=== PATIENT | male | born 1935 | race Caucasian/White ===

== ENCOUNTER → 2016-06-20 | Outpatient (CLI) | payer MEDICARE, OTHER ==
--- NOTE | 2016-06-20 16:16 | CT ---
EXAM DESCRIPTION: Chest CT. CLINICAL HISTORY: Enlarging pulmonary nodules seen on prior study. COMPARISON: February 16, 2014 and December 24, 2015. TECHNIQUE: A volumetric CT without IV contrast was acquired and displayed in multiplanar reconstructions. FINDINGS: Mediastinum: Coronary artery disease noted. Visualized lymph nodes are within normal limits for CT size criteria. No acute aortic abnormality, pericardial effusion, or mediastinal mass. Upper Abdomen: Visualized segments of the abdominal organs are unremarkable. Lungs: There is once again severe emphysema. All the calcified and soft tissue nodules seen within bilateral lungs have remained stable. No new pulmonary nodules noted. Minimal scarring seen within the right middle lobe. No pleural effusion noted. Bones: No suspicious bone lesion is seen. IMPRESSION: All findings on today's study are stable when compared to December 24, 2015. One year followup to document 2 years stability and a benign etiology is suggested. Electronically signed by: Silvio Jaquez MD 06/20/2016 16:14
== END ==
LOC: CT 13:45
PROVIDERS: ATTEND Internal Medicine
DX: J44.9 Chronic obstructive pulmonary disease, unspecified (principal); J98.4 Other disorders of lung

== ENCOUNTER → 2016-07-19 | Outpatient (CLI) | payer MEDICARE, OTHER ==
--- NOTE | 2016-07-20 12:03 | MRI ---
EXAM DESCRIPTION: Brain w/oContrast CLINICAL HISTORY: TRANSIENT CEREBRAL ISCHEMIC ATTACK, UNSPECIFIED COMPARISON: None available TECHNIQUE: Non contrast MRI of the brain is performed according to our usual protocol including multiplanar multi sequence technique. FINDINGS: There is no restricted diffusion on today's study. The midline structures. Unremarkable. No flow void is noted within the left intracranial internal carotid artery compatible with occlusion. Encephalomalacia involving anterior bilateral temporal lobes. Extensive chronic microvascular ischemic change with cerebral atrophy, left greater than right. The orbits and globes are unremarkable. Paranasal sinuses and mastoid air cells are clear. The gradient sequences reveal no evidence of hemorrhage. IMPRESSION: There is complete occlusion of the left internal carotid artery. Extensive white matter disease noted bilaterally along with encephalomalacia of bilateral anterior temporal lobes, left greater than right. Encephalomalacia can be seen in setting of previous infarcts or trauma given location. Extensive chronic microvascular ischemic change and cerebral atrophy. The atrophy is most pronounced within the left cerebral hemisphere corresponding to the occluded left internal carotid artery. Electronically signed by: Silvio Jaquez MD 07/20/2016 12:02 PM [employer]PECTOR FINISHING
--- NOTE | 2016-07-20 13:01 | US ---
EXAM DESCRIPTION: Carotid Duplex CLINICAL HISTORY: STENOSIS COMPARISON: None Available. TECHNIQUE: Multiple grayscale, color, and spectral Doppler images of the bilateral carotid systems. FINDINGS: Atherosclerotic plaque noted within the proximal right common carotid artery and right carotid bulb. Atherosclerotic plaque noted within the left proximal common carotid artery and carotid bulb. There is complete occlusion of the left internal carotid artery. The right common carotid artery peak systolic velocity is 83 cm/s, left is 71. The peak systolic velocity of the right internal carotid artery is 107, the left is occluded. The right IC/CC ratio is 1.3. Antegrade flow within bilateral vertebral arteries. IMPRESSION: There is complete occlusion of the left internal carotid artery. This was noted on the MRI of the brain performed today. The right carotid system demonstrates stenosis measuring 1-49% due to atherosclerotic plaque and no abnormal peak systolic velocities. Electronically signed by: Silvio Jaquez MD 07/20/2016 1:00 PM [employer]SERVATION POLICY ANALYST
== END ==
LOC: MRI 09:52
PROVIDERS: ATTEND Family Medicine
DX: I65.23 Occlusion and stenosis of bilateral carotid arteries (principal)

== ENCOUNTER → 2016-10-19 | Outpatient (CLI) | payer MEDICARE, OTHER ==
--- NOTE | 2016-10-20 08:07 | CT ---
EXAM DESCRIPTION: Abdoment/Pelvis w/o Contrast CLINICAL HISTORY: RIGHT FLANK PAIN COMPARISON: February 23, 2016. TECHNIQUE: CT of the abdomen and pelvis was performed . Multiple axial images and multiplanar reconstructions were generated. This exam was performed according to our department minimal dose optimization program which includes automated exposure control, adjustment of mA and/or kV according to patient size and/or use of iterative reconstructed techniques. FINDINGS: Emphysema noted within the lung bases. The right kidney is not visualized on today's exam and may be surgically absent. No left renal stone noted. Urinary bladder is unremarkable. Mild prostate enlargement. Left fat-containing inguinal hernia. Cholelithiasis. The liver, left adrenal gland and spleen are unremarkable. There is a fat-containing right adrenal adenoma. The pancreas is unremarkable. Diverticulosis of the colon noted. The small bowel is unremarkable. Ectasia of the infrarenal abdominal aorta is noted. IMPRESSION: 1. Cholelithiasis. 2. The right kidney is surgically absent. 3. No left renal stone on today's study. 4. Diverticulosis of the colon noted. Electronically signed by: Silvio Jaquez MD 10/20/2016 8:07 AM CDT
== END | disposition home or self-care (01) ==
LOC: CT 08:44
PROVIDERS: ATTEND Family Medicine
DX: R10.9 Unspecified abdominal pain (principal)

== ENCOUNTER 2017-03-02 08:40 | Inpatient (IN) | payer MEDICARE, OTHER ==
[2017-03-02] MEDS ORDERED: ACETAMINOPHEN 500 MG TAB PO ONE (09:03)
[2017-03-02] MEDS ORDERED: IPRATROPIUM/ALBUTEROL 3 ML VIAL NEB ONE (09:13)
--- NOTE | 2017-03-02 09:46 | RAD ---
EXAM DESCRIPTION: Chest,1 View CLINICAL HISTORY: sob, cough, fever COMPARISON: April 09, 2015 FINDINGS: The cardiomediastinal silhouette is unremarkable. Airspace consolidation the right lung base is new from the prior exam and consistent with pneumonia. No pleural effusion. Again seen is a calcified granuloma in the left upper lung, stable. There is no pneumothorax or acute fracture. IMPRESSION: Right basilar pneumonia. Follow-up chest radiograph after treatment is recommended to document resolution. Electronically signed by: Byran Landry MD 03/02/2017 9:45 AM CDT
[2017-03-02] MEDS ORDERED: cefTRIAXone SODIUM 1 GM in SODIUM CHL 0.9% 50ML MIN-BAG+ 50 ML IVPB ONE (10:18)
[2017-03-02] MEDS ORDERED: AZITHROMYCIN IV 500 MG in SODIUM CHLORIDE 0.9% 250ML 250 ML IVPB ONE (10:18)
[2017-03-02] MEDS ORDERED: CLINDAMYCIN IV 900MG 900 MG in PREMIX BAG 1 BAG IVPB ONE (10:18)
[2017-03-02] MEDS ORDERED: cefTRIAXone SODIUM 1 GM VIAL ONE (10:22)
[2017-03-02] MEDS ORDERED: SODIUM CHL 0.9% 50ML MIN-BAG+ 50 ML IVPB ONE (10:23)
--- NOTE | 2017-03-02 10:41 | ED.PDOC ---
History of Present Illness - General Chief Complaint: Respiratory Problem Stated Complaint: SHORTNESS OF BREATH Time Seen by Provider: 03/02/17 09:13 Source: patient, family - History of Present Illness Initial Comments: PT PRESENTS TO THE ED WITH COMPLAINT OF SOB THAT BEGAN ABOUT 3AM THIS MORNING. PT REPORTS HAVING A CHOKING EPISODE YESTERDAY DUE TO GERD. PT REPORTS O2 SATURATION IN THE 80S AT HOME DESPITE USE OF O2 VIA NC. Timing/Duration: this morning, getting worse Severity: moderate Improving Factors: rest Worsening Factors: movement Associated Symptoms: cough, fever/chills, shortness of breath Allergies/Adverse Reactions: Allergies Budesonide [From Symbicort] Allergy (Verified 04/03/15 18:03) Formoterol [From Symbicort] Allergy (Verified 04/03/15 18:03) Milk Protein Extract [From Spiriva] Allergy (Verified 04/03/15 18:03) Tiotropium [From Spiriva] Allergy (Verified 04/03/15 18:03) Home Medications: Ambulatory Orders Aspirin [Baby Aspirin] 81 mg PO DAILY 10/10/12 Folic Acid 1 mg PO BEDTIME 10/10/12 Metoprolol Succinate [Toprol Xl] 50 mg PO BID 10/10/12 Nifedipine [Procardia Xl] 60 mg PO BID 10/10/12 Rosuvastatin Calcium [Crestor] 20 mg PO BEDTIME 10/10/12 Fluticasone-Salmeterol [Advair Hfa 230-21 Mcg/Act] 1 aer IN BID 04/03/15 Pantoprazole Tablet [Protonix] 40 mg PO ACBK 04/03/15 Polyethylene Glycol 3350 [Miralax] 17 gm PO DAILY 04/03/15 SITagliptin [Januvia] 50 mg PO DAILY 04/03/15 Review of Systems - Review of Systems Constitutional: States: fever. Denies: chills EENTM: Denies: nose congestion, throat pain Respiratory: States: cough, short of breath Cardiology: Denies: chest pain, palpitations Gastrointestinal/Abdominal: Denies: abdominal pain, diarrhea, nausea Musculoskeletal: Denies: joint pain, joint swelling Skin: Denies: dryness, lesions Neurological: Denies: headache, numbness Endocrine: States: no symptoms reported Hematologic/Lymphatic: States: no symptoms reported Past Medical History (General) - Patient Medical History Hx Seizures: No Hx Stroke: No Hx Asthma: No Hx of COPD: Yes Hx Cardiac Disorders: Yes Hx Congestive Heart Failure: No Hx Pacemaker: No Hx Hypertension: Yes Hx Diabetes: Yes - medication controled Hx Renal Disease: Yes - right kidney removal Hx MRSA: No - Vaccination History Hx Tetanus, Diphtheria Vaccination: Yes Hx Influenza Vaccination: Yes - 2015 Hx Pneumococcal Vaccination: Yes - 2015 - Social History Hx Tobacco Use: No Hx Alcohol Use: No Hx Substance Use: No Hx Physical Abuse: No Hx Emotional Abuse: No Family Medical History - Family History Father Family History: Unknown Age (years): 71 Living Status: Hx Family;Other: father of annursim Mother Age (years): 72 Hx Family Diabetes: Yes Physical Exam - Physical Exam General Appearance: Alert, No apparent distress, Well Developed, Well Groomed, Well Hydrated Eye Exam: bilateral normal ENT Exam: hearing grossly normal Neck: supple, normal inspection Respiratory: no respiratory distress, no accessory muscle use, rales - AT BASES Cardiovascular/Chest: regular rate, rhythm, no edema, no murmur Gastrointestinal/Abdominal: non tender, soft Extremity: non-tender, normal inspection Neurologic: alert, normal mood/affect, oriented x 3 Skin Exam: normal color, warm/dry Lymphatic: no adenopathy Progress - Progress Progress: 03/02/17 10:43 PT REPORTS SOME IMPROVEMENT IN DYSPNEA AFTER DUONEB. O2 SAT NOW 95% ON 55% O2 VIA VENTI MASK. LABS AND CXR FINDINGS DISCUSSED. PT AGREES WITH PLAN FOR ADMISSION. - Results/Orders Results/Orders: 03/02/17 09:00 EKG STAT 03/02/17 09:15 EKG STAT 03/02/17 09:30 BLOOD CULTURE Stat 03/02/17 10:18 Azithromycin IV [Zithromax IV] 500 mg Sodium Chloride 0.9% 250Ml [NS 250ml] 250 ml IVPB ONCE Clindamycin IV 900Mg [Cleocin IV 900mg] 900 mg Premix Bag 1 bag IVPB ONCE cefTRIAXone SODIUM [Rocephin] 1 gm Sodium Chl 0.9% 50Ml Min-Bag+ [NS 50ml MINI -BAG+] 50 ml IVPB ONCE Laboratory Results - last 24 hr 03/02/17 03/02/17 03/02/17 09:30 09:30 09:30 WBC 5.2 RBC 6.34 H Hgb 18.8 H Hct 56.4 H MCV 89.0 MCH 29.6 MCHC 33.3 RDW 15.1 H Plt Count 264 MPV 8.4 Absolute Neuts (auto) 4.70 Absolute Lymphs (auto) 0.30 L Absolute Monos (auto) 0.10 L Absolute Eos (auto) 0.10 Absolute Basos (auto) 0.00 Neutrophils % 90.6 H Lymphocytes % 5.4 L Monocytes % 2.1 Eosinophils % 1.2 Basophils % 0.7 pCO2 pO2 HCO3 ABG pH ABG O2 Saturation ABG Base Excess ABG Deoxyhemoglobin Oxyhemoglobin % Carboxyhemoglobin % Methemoglobin % Sat Calc Total Hemoglobin Sodium 138 Potassium 5.2 H Chloride 104 Carbon Dioxide 25 Anion Gap 14.2 BUN 26 H Creatinine 2.25 H BUN/Creatinine Ratio 11.6 Random Glucose 202 H Serum Osmolality 286.2 Calcium 8.6 Total Bilirubin 0.8 AST 18 ALT 14 Alkaline Phosphatase 74 Creatine Kinase 53 CK-MB (CK-2) 1.0 CK-MB (CK-2) % Not Reportable Troponin I < 0.02 B-Natriuretic Peptide 13.3 Serum Total Protein 7.2 Albumin 3.9 Globulin 3.3 Albumin/Globulin Ratio 1.2 03/02/17 09:44 WBC RBC Hgb Hct MCV MCH MCHC RDW Plt Count MPV Absolute Neuts (auto) Absolute Lymphs (auto) Absolute Monos (auto) Absolute Eos (auto) Absolute Basos (auto) Neutrophils % Lymphocytes % Monocytes % Eosinophils % Basophils % pCO2 37 pO2 60 L HCO3 20.7 ABG pH 7.370 ABG O2 Saturation 89.0 L ABG Base Excess -3.5 ABG Deoxyhemoglobin 10.9 H Oxyhemoglobin % 87.6 L Carboxyhemoglobin % 0.8 Methemoglobin % Sat 0.7 Calc Total Hemoglobin 17.5 Sodium Potassium Chloride Carbon Dioxide Anion Gap BUN Creatinine BUN/Creatinine Ratio Random Glucose Serum Osmolality Calcium Total Bilirubin AST ALT Alkaline Phosphatase Creatine Kinase CK-MB (CK-2) CK-MB (CK-2) % Troponin I B-Natriuretic Peptide Serum Total Protein Albumin Globulin Albumin/Globulin Ratio - EKG/XRAY/CT EKG: Sinus - 96BPM, no ST T wave changes, Unchanged from - 04/03/2015 Comments: INCOMPLETE RBBB XRAY: chest - RLL INFILTRATE PER RAD Departure - Departure Clinical Impression: Respiratory failure, Hypoxemia, Pneumonia, Hyperkalemia, Chronic renal disease Time of Disposition: 10:47 Disposition: Admit Patient Condition: Fair Departure Forms: ED Discharge - Pt. Copy, Patient Portal Self Enrollment Referrals: Keith Roque MD [Primary Care Provider] - 1-2 Weeks Home Medications: Ambulatory Orders Aspirin [Baby Aspirin] 81 mg PO DAILY 10/10/12 Folic Acid 1 mg PO BEDTIME 10/10/12 Metoprolol Succinate [Toprol Xl] 50 mg PO BID 10/10/12 Nifedipine [Procardia Xl] 60 mg PO BID 10/10/12 Rosuvastatin Calcium [Crestor] 20 mg PO BEDTIME 10/10/12 Fluticasone-Salmeterol [Advair Hfa 230-21 Mcg/Act] 1 aer IN BID 04/03/15 Pantoprazole Tablet [Protonix] 40 mg PO ACBK 04/03/15 Polyethylene Glycol 3350 [Miralax] 17 gm PO DAILY 04/03/15 SITagliptin [Januvia] 50 mg PO DAILY 04/03/15 Decision To Admit - Decistion To Admit Decision to Admit Reason: Admit from ER Decision to Admit Date: 03/02/17 Decision to Admit Time: 10:48 - CASE DISCUSSED WITH TYESHA SHAFER NP WHO AGREES TO ADMIT PATIENT
[2017-03-02] MEDS ORDERED: SODIUM CHLORIDE 0.9% 1000ML 1,000 ML IVS ONE (10:51)
[2017-03-02] MEDS ORDERED: CLINDAMYCIN IV 900MG 50 ML IVPB ONE (11:06)
[2017-03-02] MEDS ORDERED: AZITHROMYCIN IV 500 MG VIAL IVPB ONE (12:14)
[2017-03-02] MEDS ORDERED: SODIUM CHLORIDE 0.9% 250ML 250 ML ONE (12:14)
--- NOTE | 2017-03-02 12:30 | HP ---
SUPERVISING PHYSICIAN: Keith Roque M.D. CHIEF COMPLAINT: Shortness of breath. HISTORY OF PRESENT ILLNESS: Mr. Sellers is an 81 year-old male patient that presented to the Emergency Department complaining of shortness of breath that had started around 3:00 AM this morning. The patient noted that he started having choking episodes yesterday as he had an exacerbation of his GERD during the middle of the night and felt like he had aspirated some stomach acid. He noted that his O2 saturations were in the 80s at home despite the use of oxygen via nasal cannula he only wears. He presented to the Emergency Department. Initial vital signs showed that he had a temperature of 101.2, satting 74% on room air with obvious shortness of breath. After breathing treatment and a Venti mask at 55%, his O2 saturations did improve to 95%. Blood pressure was showing to be stable at 158/73. He does have a significant history of chronic obstructive pulmonary disease and gastroesophageal reflux disease. He was last hospitalized for pneumonia in March 2015. He is currently followed by a pulmonology specialist, Dr. Mtz in [place]. Today, laboratory studies showed that currently white count was at 5,200 but he did have a left shift. Blood gas analysis showed hypoxemia with PO2 of 60 with pH of 7.3, but he was satting 89% on room air. PCO2 was within normal limits at 37. His chemistries also showed that he had a mild hyponatremia, but he has a history of chronic renal insufficiency with a creatinine currently at 2.25 which is close to the patient's baseline status between 2.2 and 2.5. Radiographic studies completed in the Emergency Department included a single view chest x-ray that showed right basilar pneumonia. Dr. Jean, E. R. physician, requested the patient be admitted for aspiration pneumonia community acquired as the patient was febrile with hypoxemia and hypoxia as noted on current ABGs and laboratory studies reporting the aspiration event in the previous 12 hours. The patient now is to be admitted to the Medical/Surgical floor for aspiration pneumonia community acquired for initiation of parenteral antibiotics and further stabilization, and ongoing bronchial hygiene. He was in stable condition at time of admission. PAST MEDICAL HISTORY: 1. Bladder cancer. 2. Coronary artery disease with a history of myocardial infarctions. 3. Diabetes mellitus type 2. 4. Chronic obstructive pulmonary disease followed by Dr. Terasaki. 5. Hypertension. 6. History of diverticulosis. 7. Chronic renal failure with a creatinine baseline being around 2.2 to 2.5. 8. Renal carcinoma diagnosed in 1963. 9. Carotid artery disease with 100% occluded left carotid. 10. Gastroesophageal reflux disease. 11. Type 2 diabetes mellitus. 12. Benign prostatic hypertrophy without obstruction. PAST SURGICAL HISTORY: 1. Nephrectomy due to renal carcinoma in 1963. 2. Carotid endarterectomy right side in 2002. 3. Fracture repair of the right hand. 4. PTCA coronary angioplasty in 2010 with 2 stents in the RCA. 5. Vasectomy. 6. Colonoscopy in 2012 with benign polyps and diverticulosis. HOME MEDICATIONS: 1. Januvia 50 mg daily. 2. Crestor 20 mg at bedtime. 3. MiraLAX 17 grams daily. 4. Protonix 40 mg daily. 5. Procardia XL 60 mg twice daily. 6. Toprol XL 50 mg b.i.d. 7. Folic acid 1 mg at bedtime. 8. Advair 230-21, one inhaled twice daily. 9. Aspirin 81 mg daily. ALLERGIES: BUDESONIDE, FORMOTEROL, MILK PROTEIN EXTRACT, TIOTROPIUM. FAMILY HISTORY: Positive for chronic obstructive pulmonary disease, cancer and diabetes. SOCIAL HISTORY: The patient is retired. He previously worked as a mariscal. He does have a lengthy history of smoking and was stopped previously 27 years ago. Denies any alcohol or illicit drug use. He lives in [place], [place] and is . REVIEW OF SYSTEMS: CONSTITUTIONAL: He does have a fever. Denies any chills but does have some general malaise. HEENT: Denies any nasal congestion. Has some throat irritation from gastroesophageal reflux disease exacerbation. RESPIRATORY: As noted in the history of present illness, shortness of breath with productive cough. CARDIOVASCULAR: Denies any chest pains, palpitations or syncopal episodes. GASTROINTESTINAL: Denies any abdominal pain, diarrhea, nausea or vomiting or constipation. GENITOURINARY: Denies any history of hematuria, nocturia, dysuria or other urinary symptoms. Does have a history of benign prostatic hypertrophy. NEUROLOGIC: Denies any headaches, numbness, vision changes or syncopal episodes. PHYSICAL EXAMINATION: VITAL SIGNS: Temperature in the E. R. was 101.2, pulse 95, blood pressure 158/ 73, respirations 28, satting 74% on room air. After breathing treatment and on Venti mask at 55%, did improve to 95%. Admission weight 71.2 kg. GENERAL: On admission to the Medical/Surgical floor, the patient appeared to be in no acute distress. Resting comfortably. Well hydrated and well nourished. He was alert and oriented times three. HEENT: Tympanic membranes are clear bilaterally. Oropharynx was pink. Posterior pharynx was mildly erythematous. No lesions. Tonsils were within normal limits. NECK: Non-tender, full range of motion. No jugular venous distention. CHEST: There was notable rales to the bases more so prominent on the right than the left with sounds being diminished throughout. No wheezing or rhonchi noted. CARDIOVASCULAR: Regular rate and rhythm without appreciable murmurs, gallops, or rubs. ABDOMEN: Obese but soft, non-tender with positive bowel sounds. EXTREMITIES: No clubbing, cyanosis or edema. NEUROLOGIC: He is alert and oriented times three. LABORATORY: White count showed initially to be normal at 5,200 with hemoglobin 18.8, hematocrit 56.4, platelet count 264,000. Differential did show a left shift. Blood gas analysis showed a normal pH of 7.37 with bicarb 20, PO2 of 60 , PCO2 of 37, satting 89% on room air. Base excess was negative at 3.5. Chemistries showed hyperkalemia with potassium 5.2, sodium was within normal limits. BUN was 26, creatinine 2.25, glucose 202, calcium normal at 8.6. Liver functions showed to be within normal limits. Troponin was less than 0.02 , BNP was normal at 13.3. Urinalysis showed greater than 300 protein, small amount of blood. Microscopic showed to be within normal limits. MICROBIOLOGY: Blood cultures are pending times 2. Influenza type A and B swab was negative for both A and B antigen. RADIOLOGY: Chest x-ray single view per radiology interpretation showed right basilar pneumonia. ASSESSMENT: 1. Exacerbation of chronic obstructive pulmonary disease secondary to aspiration pneumonia community acquired. 2. Aspiration pneumonia secondary to exacerbation of gastroesophageal reflux disease and right sided pneumonia. 3. Diabetes mellitus type 2. 4. Hypertension. 5. Coronary artery disease by history with 2 stents. 6. Chronic kidney disease with a near baseline creatinine at time of admission of 2.25. 7. Electrolyte imbalance with hyperkalemia probably secondary to underlying renal disease. 8. Systemic inflammatory response secondary to aspiration pneumonia with the patient having hypoxemia, mild on ABGs with low saturations. PLAN: The patient will be admitted to the hospital for initiation of treatment of antibiotics for aspiration pneumonia concerns, community acquired, the patient being started on Azithromycin, Rocephin and Clindamycin. He will also be on aggressive pulmonary hygiene with chest physiotherapy. Will start him on Protonix for gastroesophageal reflux disease exacerbation. At this point, will hold off on steroids as he was not significantly wheezing. Will anticipate length of stay to be 2 to 3 days once showing to be stable. The patient can certainly continue with outpatient treatment plan. Until then will continue to monitor and treat appropriately. #[id number] [facility]
[2017-03-02] MEDS ORDERED: DEXTROSE 50% 25 GM/50 ML SYG IV PRN (14:32)
[2017-03-02] MEDS ORDERED: GLUCAGON INJ 1 MG VIAL SUBCU PRN (14:32)
[2017-03-02] MEDS ORDERED: ACETAMINOPHEN 325 MG TAB PO PRN (14:32)
[2017-03-02] MEDS: IV SET AND CAP CHANGE INJ INJ SCH (15:37)
[2017-03-02] MEDS ORDERED: LEVALBUTEROL NEBS 1.25 MG/3 ML VIAL NEB PRN (15:43)
[2017-03-02] MEDS ORDERED: metroNIDAZOLE IV PREMIX 500MG 500 MG in PREMIX BAG 1 BAG IVPB SCH (16:00)
[2017-03-02] MEDS: BIFIDOBACTERIUM INFANTIS 4 MG CAP PO SCH ×2 (16:06→20:44)
[2017-03-02] MEDS: INSULIN LISPRO 100 UNITS/ML PEN SUBCU SCH ×2 (16:40→21:09)
[2017-03-02] MEDS: LEVALBUTEROL NEBS 1.25 MG/3 ML VIAL NEB SCH ×2 (17:40→23:45)
[2017-03-02] MEDS ORDERED: FLUTICASONE/SALMETEROL 250/50 14 PUFF/17 GM INH INH ONE (19:17)
[2017-03-02] MEDS ORDERED: CLINDAMYCIN IV 600MG 50 ML IVPB ONE ×2 (19:28→19:29)
[2017-03-02] MEDS ORDERED: ATORVASTATIN 20 MG TAB PO ONE (19:28)
[2017-03-02] MEDS ORDERED: FOLIC ACID 1 MG TAB ONE (19:28)
[2017-03-02] MEDS ORDERED: METOPROLOL SUCCINATE XL 50 MG TAB ONE (19:28)
[2017-03-02] MEDS ORDERED: NIFEdipine XL 30 MG TAB PO ONE (19:29)
[2017-03-02] MEDS ORDERED: PANTOPRAZOLE SODIUM IV 40 MG VIAL ONE (19:29)
[2017-03-02] MEDS: SODIUM CHLORIDE 0.9% (FLUSH) 10 ML SYG IV PRN (19:43)
[2017-03-02] MEDS: CLINDAMYCIN IV 600MG 600 MG in PREMIX BAG 1 BAG IVPB SCH (19:44)
[2017-03-02] MEDS: [UNRECOGNIZED DRUG - OTHER] INH SCH (19:55)
[2017-03-02] MEDS: SALMETEROL INH SCH (19:55)
[2017-03-02] MEDS: FLUTICASONE INH SCH (19:55)
[2017-03-02] MEDS: METOPROLOL SUCCINATE XL 50 MG TAB PO SCH (20:43)
[2017-03-02] MEDS: ATORVASTATIN 20 MG TAB PO SCH (20:43)
[2017-03-02] MEDS: NIFEdipine XL 30 MG TAB PO SCH (20:44)
[2017-03-02] MEDS: SODIUM CHLORIDE 0.9% (FLUSH) 10 ML SYG IV SCH (20:44)
[2017-03-02] MEDS: FOLIC ACID 1 MG TAB PO SCH (20:44)
[2017-03-02] MEDS ORDERED: NON-FORMULARY MEDICATION 1 EA MIS (Rosuvastatin Calcium [Crestor] 20 MG) PO SCH (21:00)
--- NOTE | 2017-03-02 22:42 | PCM.CORE ---
Physician DVT/VTE - Nurse DVT Assessment & Total Each Risk Factor Represents 3 Points: Age over 75 years, Medical PT with Hx of MN, CHF, Severe infection/sepsis Each Risk Factor is 1 Point: Serious Lung disease (pnemonia <1month, COPD, emphysema,etc) DVT Assessment Score: 7 - 5 or more Very High Risk Treatments: Early Ambulation *, Sequential Compression Device Pharmacological: Enoxaparin 40mg SQ Daily
[2017-03-02] MEDS ORDERED: ENOXAPARIN SODIUM 40 MG/0.4 ML SYG SUBCU SCH (23:00)
[2017-03-03] MEDS ORDERED: ENOXAPARIN SODIUM 30 MG/0.3 ML SYG SUBCU ONE ×2 (00:48→19:44)
[2017-03-03] MEDS: CLINDAMYCIN IV 600MG 600 MG in PREMIX BAG 1 BAG IVPB SCH ×3 (04:07→20:00)
[2017-03-03] MEDS ORDERED: PANTOPRAZOLE SODIUM IV 40 MG VIAL IV SCH (06:30)
--- NOTE | 2017-03-03 06:44 | RAD ---
Clinical History : Pneumonia , MAIN Exam : PA and lateral views of the chest 03/03/2017 7:00 AM CDT Comparisons : Portable AP view of the chest March 02, 2017 Findings : There is improving confluent right lower lobe and lingular airspace disease. There are stable emphysematous changes bilaterally. The heart is normal in size. The mediastinal contours are normal in appearance. The thoracic spine is age appropriate. The shoulders are unremarkable. Limited evaluation of the upper abdomen demonstrates no gross abnormalities. Impression: Improving right lower lobe and lingular airspace disease. Electronically signed by: Chay Mojica MD 03/03/2017 6:43 AM CDT
[2017-03-03] MEDS ORDERED: PANTOPRAZOLE SODIUM TAB 40 MG PO SCH (07:00)
[2017-03-03] MEDS: INSULIN LISPRO 100 UNITS/ML PEN SUBCU SCH ×4 (08:12→21:22)
[2017-03-03] MEDS: LEVALBUTEROL NEBS 1.25 MG/3 ML VIAL NEB SCH ×2 (08:25→16:42)
[2017-03-03] MEDS ORDERED: cefTRIAXone SODIUM 1 GM VIAL ONE (08:49)
[2017-03-03] MEDS ORDERED: SODIUM CHLORIDE 0.9% 50ML 0 ML ONE (08:50)
[2017-03-03] MEDS ORDERED: SODIUM CHL 0.9% 50ML MIN-BAG+ 50 ML IVPB ONE (08:55)
[2017-03-03] MEDS: SODIUM CHLORIDE 0.9% (FLUSH) 10 ML SYG IV SCH ×2 (09:00→20:00)
[2017-03-03] MEDS: POLYETHYLENE GLYCOL 3350 17 GM PCKT PO SCH (09:00)
[2017-03-03] MEDS: ASPIRIN (CHEWABLE) 81 MG TAB PO SCH (09:00)
[2017-03-03] MEDS: BIFIDOBACTERIUM INFANTIS 4 MG CAP PO SCH ×2 (09:00→20:59)
[2017-03-03] MEDS: NIFEdipine XL 30 MG TAB PO SCH ×2 (09:00→20:59)
[2017-03-03] MEDS: SITagliptin 50 MG TAB PO SCH (09:00)
[2017-03-03] MEDS: cefTRIAXone SODIUM 1 GM in SODIUM CHL 0.9% 50ML MIN-BAG+ 50 ML IVPB SCH (09:01)
[2017-03-03] MEDS: METOPROLOL SUCCINATE XL 50 MG TAB PO SCH ×2 (09:06→20:59)
[2017-03-03] MEDS ORDERED: CLINDAMYCIN IV 600MG 50 ML IVPB ONE ×2 (11:21→19:43)
[2017-03-03] MEDS ORDERED: MAGNESIUM HYDROXIDE 30 ML UD PO ONE (12:40)
[2017-03-03] MEDS ORDERED: SODIUM CHLORIDE 0.9% 250ML 250 ML ONE (14:26)
[2017-03-03] MEDS ORDERED: AZITHROMYCIN IV 500 MG VIAL IVPB ONE (14:27)
[2017-03-03] MEDS: AZITHROMYCIN IV 500 MG in SODIUM CHLORIDE 0.9% 250ML 250 ML IVPB SCH (14:32)
[2017-03-03] MEDS: SALMETEROL INH SCH ×2 (15:13→19:50)
[2017-03-03] MEDS: [UNRECOGNIZED DRUG - OTHER] INH SCH ×2 (15:13→19:50)
[2017-03-03] MEDS: FLUTICASONE INH SCH ×2 (15:13→19:50)
--- NOTE | 2017-03-03 16:33 | PN ---
SUPERVISING PHYSICIAN: Keith Roque MD DATE: 03/03/17 SUBJECTIVE: The patient still continues to be somewhat short of breath, especially with exertional effort. He has required some additional respiratory support with Venti mask to maintain 02 saturations at least greater than 91%. He does remain afebrile. The patient did have one bowel movement but continues to feel like he is bloated even with minimal food. Therefore, discussed working on some constipation issues with utilizing Miralax and milk of magnesia. OBJECTIVE: VITAL SIGNS: T-max 98.8, pulse 86, blood pressure 120/67, respirations 18, saturation 91% on Venti mask at 50%. i&O: Positive balance of 193 with 993 in and 800 out. He has had one bowel movement. Weight is 71.3 kg. CHEST: Lung sounds on the left are fairly clear. Right sounds are diminished with just a very faint rhonchi heard posteriorly laterally but no wheezing. HEART: Regular rate and rhythm. ABDOMEN: Obese, soft, non-tender, positive bowel sounds. EXTREMITIES: No cyanosis, clubbing, or edema. NEUROLOGICAL: Alert and oriented x3. LABORATORY: White count has gone up to 15,700, hemoglobin at 15.1, hematocrit 44.8, platelet count is at 115,000. Differential does show a left shift. Chemistries show normal electrolytes with BUN 25, creatinine 1.94, glucose has been 151 to 204. RADIOLOGY: Chest x-ray today per radiology interpretation shows improvement in the right lower lobe and lingular airspace disease. ASSESSMENT: 1. Exacerbation of acute chronic obstructive pulmonary disease secondary to aspiration pneumonia, community acquired. 2. Aspiration pneumonia secondary to exacerbation of gastroesophageal reflux disease and right-sided pneumonia. 3. Diabetes mellitus type 2. 4. Hypertension. 5. Coronary artery disease by history with 2 stents. 6. Chronic kidney disease with baseline creatinine of 2.25 with admission creatinine being 2.25. 7. Electrolyte imbalance with mild hyperkalemia, having resolved/ 8. Systemic inflammatory response secondary to aspiration pneumonia with the patient having a mild hypoxemia as noted on ABGs with continued low saturations. PLAN: Continue with aggressive pulmonary hygiene today. He will remain on antibiotics to include azithromycin, Rocephin and clindamycin. Will emphasize chest physical therapy and breathing exercises. He remains on Protonix for his gastroesophageal reflux disease. No steroids have been administered as patient is showing improvement and not been wheezing. Will anticipate hopefully discharging the next 1 to 2 days. Until the, we will continue to monitor and treat appropriately. #[id number] [facility]
[2017-03-03] MEDS: ATORVASTATIN 20 MG TAB PO SCH (20:59)
[2017-03-03] MEDS: ENOXAPARIN SODIUM 40 MG/0.4 ML SYG SUBCU SCH (21:00)
[2017-03-03] MEDS: FOLIC ACID 1 MG TAB PO SCH (21:00)
[2017-03-04] MEDS: LEVALBUTEROL NEBS 1.25 MG/3 ML VIAL NEB SCH ×4 (00:05→23:45)
[2017-03-04] MEDS ORDERED: CLINDAMYCIN IV 600MG 50 ML IVPB ONE ×3 (03:06→19:25)
[2017-03-04] MEDS ORDERED: PANTOPRAZOLE SODIUM TAB 40 MG PO ONE (03:06)
[2017-03-04] MEDS: methylPREDNISolone SODIUM SUC 125 MG/2 ML VIAL IV SCH ×4 (03:17→19:40)
[2017-03-04] MEDS: SODIUM CHLORIDE 0.9% (FLUSH) 10 ML SYG IV PRN ×5 (03:17→19:39)
[2017-03-04] MEDS: CLINDAMYCIN IV 600MG 600 MG in PREMIX BAG 1 BAG IVPB SCH ×3 (03:32→19:40)
[2017-03-04] MEDS: PANTOPRAZOLE SODIUM TAB 40 MG PO SCH (06:06)
--- NOTE | 2017-03-04 06:39 | RAD ---
Clinical History : aspiration pneumonia , MAIN Exam : PA and lateral views of the chest 03/04/2017 7:00 AM CDT Comparisons : PA and lateral views of the chest March 03, 2017 Findings : There is increasing patchy confluent bibasilar airspace disease with small bilateral pleural effusions. There are table emphysematous changes bilaterally. The heart is normal in size. The mediastinal contours are normal in appearance. There are vascular calcifications along the aortic arch. The thoracic spine is age appropriate. The shoulders are unremarkable. Limited evaluation of the upper abdomen demonstrates no gross abnormalities. Impression: 1. Increasing patchy bibasilar airspace disease. 2. Stable emphysema. Electronically signed by: Chay Mojica MD 03/04/2017 6:37 AM CDT
[2017-03-04] MEDS: INSULIN LISPRO 100 UNITS/ML PEN SUBCU SCH ×4 (07:30→20:58)
[2017-03-04] MEDS: SODIUM CHLORIDE 0.9% (FLUSH) 10 ML SYG IV SCH ×2 (07:34→20:55)
[2017-03-04] MEDS: METOPROLOL SUCCINATE XL 50 MG TAB PO SCH ×2 (08:13→20:55)
[2017-03-04] MEDS: SITagliptin 50 MG TAB PO SCH (08:13)
[2017-03-04] MEDS: BIFIDOBACTERIUM INFANTIS 4 MG CAP PO SCH ×2 (08:13→20:55)
[2017-03-04] MEDS: NIFEdipine XL 30 MG TAB PO SCH ×2 (08:13→20:55)
[2017-03-04] MEDS: POLYETHYLENE GLYCOL 3350 17 GM PCKT PO SCH (08:14)
[2017-03-04] MEDS: ASPIRIN (CHEWABLE) 81 MG TAB PO SCH (08:14)
[2017-03-04] MEDS: [UNRECOGNIZED DRUG - OTHER] INH SCH ×2 (08:35→19:50)
[2017-03-04] MEDS: FLUTICASONE INH SCH ×2 (08:35→19:50)
[2017-03-04] MEDS: SALMETEROL INH SCH ×2 (08:35→19:50)
[2017-03-04] MEDS ORDERED: cefTRIAXone SODIUM 1 GM VIAL ONE (09:24)
[2017-03-04] MEDS ORDERED: SODIUM CHL 0.9% 50ML MIN-BAG+ 50 ML IVPB ONE (09:24)
[2017-03-04] MEDS: cefTRIAXone SODIUM 1 GM in SODIUM CHL 0.9% 50ML MIN-BAG+ 50 ML IVPB SCH (09:34)
[2017-03-04] MEDS ORDERED: SODIUM CHLORIDE 0.9% 250ML 250 ML ONE (12:51)
[2017-03-04] MEDS ORDERED: methylPREDNISolone SODIUM SUC 125 MG/2 ML VIAL ONE (12:51)
[2017-03-04] MEDS ORDERED: AZITHROMYCIN IV 500 MG VIAL IVPB ONE (12:52)
[2017-03-04] MEDS: AZITHROMYCIN IV 500 MG in SODIUM CHLORIDE 0.9% 250ML 250 ML IVPB SCH (14:22)
[2017-03-04] MEDS ORDERED: INSULIN DETEMIR 100 UNITS/ML PEN SUBCU ONE (17:00)
[2017-03-04] MEDS ORDERED: ENOXAPARIN SODIUM 30 MG/0.3 ML SYG SUBCU ONE (20:06)
[2017-03-04] MEDS: ENOXAPARIN SODIUM 40 MG/0.4 ML SYG SUBCU SCH (20:54)
[2017-03-04] MEDS: ATORVASTATIN 20 MG TAB PO SCH (20:55)
[2017-03-04] MEDS: FOLIC ACID 1 MG TAB PO SCH (20:55)
[2017-03-05] MEDS ORDERED: CLINDAMYCIN IV 600MG 50 ML IVPB ONE ×3 (01:58→20:25)
[2017-03-05] MEDS: methylPREDNISolone SODIUM SUC 125 MG/2 ML VIAL IV SCH ×4 (02:06→21:30)
[2017-03-05] MEDS: SODIUM CHLORIDE 0.9% (FLUSH) 10 ML SYG IV PRN ×3 (02:06→20:30)
[2017-03-05] MEDS: CLINDAMYCIN IV 600MG 600 MG in PREMIX BAG 1 BAG IVPB SCH ×3 (03:45→20:30)
[2017-03-05] MEDS: PANTOPRAZOLE SODIUM TAB 40 MG PO SCH (06:05)
--- NOTE | 2017-03-05 06:53 | RAD ---
Clinical History : pneumonia , MAIN Exam : PA and lateral views of the chest 03/05/2017 7:00 AM CDT Comparisons : PA and lateral views of the chest March 04, 2017 Findings : There is stable confluent bibasilar groundglass opacity and consolidation with bilateral pleural effusions. There are stable emphysematous changes diffusely. The heart is stable in size. The mediastinal contours are normal in appearance. The thoracic spine is age appropriate. The shoulders are unremarkable. Limited evaluation of the upper abdomen demonstrates no gross abnormalities. Impression: 1. Stable bilateral lower lobe airspace disease with bilateral pleural effusions. 2. Stable emphysema. Electronically signed by: Chay Mojica MD 03/05/2017 6:51 AM CDT
[2017-03-05] MEDS: INSULIN LISPRO 100 UNITS/ML PEN SUBCU SCH ×7 (07:45→21:15)
[2017-03-05] MEDS: METOPROLOL SUCCINATE XL 50 MG TAB PO SCH ×2 (08:11→20:41)
[2017-03-05] MEDS: SITagliptin 50 MG TAB PO SCH (08:11)
[2017-03-05] MEDS: POLYETHYLENE GLYCOL 3350 17 GM PCKT PO SCH (08:11)
[2017-03-05] MEDS: NIFEdipine XL 30 MG TAB PO SCH ×2 (08:11→20:42)
[2017-03-05] MEDS: ASPIRIN (CHEWABLE) 81 MG TAB PO SCH (08:11)
[2017-03-05] MEDS: BIFIDOBACTERIUM INFANTIS 4 MG CAP PO SCH ×2 (08:11→20:41)
[2017-03-05] MEDS: SODIUM CHLORIDE 0.9% (FLUSH) 10 ML SYG IV SCH ×2 (08:12→21:30)
[2017-03-05] MEDS: LEVALBUTEROL NEBS 1.25 MG/3 ML VIAL NEB SCH ×3 (08:42→23:56)
--- NOTE | 2017-03-05 08:48 | PN ---
SUPERVISING PHYSICIAN: Keith Roque MD DATE: 03/04/17 SUBJECTIVE: The patient continues to require Ventimask with any ambulatory efforts and to maintain saturations above 89%. He does not show any obvious respiratory distress at rest, but does get quite distress with any ambulation efforts. He remains afebrile. He had a bowel movement and feels better in regard to that. He has started now producing a large amount of sputum. OBJECTIVE: VITAL SIGNS: T-max 99.0. Pulse 87. Blood pressure 114/67. Respirations 22. Saturation anywhere from 87% on room air to 92% on Ventimask at 15 liters 50% FIO2. I&Os show positive balance of 1082 with 2355 in, 1275 out. He does remain saline locked and he has had 2 bowel movements. Weight 72.7 kg. CHEST: Lungs are notable diminished throughout, but more so on the right than the left. Also on the right is more of a coarse rhonchi noted, more prominent on the lateral posterior aspect. HEART: Regular rate and rhythm. ABDOMEN: Soft, nontender. Positive bowel sounds. EXTREMITIES: No cyanosis, clubbing or edema. NEUROLOGIC: Alert and oriented times three. LABORATORY: White count has gone up to 16.8 from 15.7 yesterday, but has been started on corticosteroids in the last 24 hours. Hemoglobin and hematocrit are stable at 14.9 and 44.0. Platelet count 177,000. Differential does continue to show a left shift. Blood gas analysis on admission did show a PCO2 of 37, PO2 low at 60. Chemistries today show normal carbon dioxide of 24. Creatinine and BUN are at baseline status with creatinine 2.18. Other electrolytes within normal limits. Blood sugars have been between 172 and 196. MICROBIOLOGY: Blood cultures remain negative at 48 hours. RADIOLOGY: Chest x-ray per radiologic interpretation shows increasing bibasilar airspace disease with a small bilateral pleural effusion. ASSESSMENT: 1. Acute exacerbation of chronic obstructive pulmonary disease secondary to aspiration pneumonia, community acquired, showing slow improvement with requirement of initiation of corticosteroids and continued aggressive pulmonary hygiene, still maintaining low O2 saturations with Ventimask. 2. Aspiration pneumonia secondary to acute exacerbation of gastroesophageal reflux disease. 3. Diabetes mellitus, type 2. 4. Hypertension. 5. Coronary artery disease, by history with 2 stents. 6. Chronic kidney disease with baseline creatinine of 2.25 on admission with creatinine being stable. 7. Electrolyte imbalance with mild hyperkalemia, resolved after admission. 8. Systemic inflammatory response secondary to aspiration pneumonia with the patient having a mild hypoxemia as noted on ABGs with continued low saturations requiring high flow to maintain oxygenation. 9. Right sided more prominent expiratory wheeze than previous days. PLAN: We will continue with current plan of care with antibiotics of clindamycin, Rocephin, azithromycin. He will be on aggressive pulmonary hygiene with Xopenex breathing treatments. I did start him on Solu-Medrol initially 60 mg q.6h., however, he has continued to show some increasing wheezing. This was increased today to 80 mg q.6h. We will continue to monitor the patient closely and anticipate another 24 to 48 hours of aggressive treatment and work to titrate the patient back to nasal cannula as possible. We will await sputum culture and target antibiotic therapy accordingly once those results are available. Until discharge, we will continue to monitor the patient closely and treat appropriately. #[id number] [facility]
[2017-03-05] MEDS: FLUTICASONE INH SCH ×2 (09:15→21:12)
[2017-03-05] MEDS: SALMETEROL INH SCH ×2 (09:15→21:12)
[2017-03-05] MEDS: [UNRECOGNIZED DRUG - OTHER] INH SCH ×2 (09:15→21:12)
[2017-03-05] MEDS ORDERED: cefTRIAXone SODIUM 1 GM VIAL ONE (09:49)
[2017-03-05] MEDS ORDERED: SODIUM CHL 0.9% 50ML MIN-BAG+ 50 ML IVPB ONE (09:49)
[2017-03-05] MEDS: cefTRIAXone SODIUM 1 GM in SODIUM CHL 0.9% 50ML MIN-BAG+ 50 ML IVPB SCH (10:11)
[2017-03-05] MEDS ORDERED: SODIUM CHLORIDE 0.9% 500ML 500 ML IVS ONE (11:32)
[2017-03-05] MEDS ORDERED: methylPREDNISolone SODIUM SUC 125 MG/2 ML VIAL ONE (12:40)
[2017-03-05] MEDS: MAGNESIUM HYDROXIDE 30 ML UD PO SCH ×2 (13:07→16:39)
[2017-03-05] MEDS: guaiFENesin ER TAB 600 MG TAB PO SCH ×2 (13:07→20:42)
--- NOTE | 2017-03-05 13:41 | PN ---
SUPERVISING PHYSICIAN: Erik Duffy MD DATE: 03/05/17 SUBJECTIVE: The patient is sitting up in his bed. He is feeling much better than he has been in the last couple of days. He still gets short of breath and is coughing quite a bit of phlegm up, but feels some better. He denies any chest pain, nausea, vomiting or diarrhea. He does complain of constipation and he has not had a bowel movement in several days. OBJECTIVE: VITAL SIGNS: Afebrile. Heart rate 97. Blood pressure 149/56. Respiratory rate 20, but has gotten as high as 26. O2 saturation 93%. LUNGS: Scattered rhonchi throughout with a few expiratory wheezes in the apices. CARDIAC: Regular rate and rhythm. ABDOMEN: Soft, nondistended, nontender. Bowel sounds are positive. EXTREMITIES: No cyanosis, clubbing or edema. NEUROLOGIC: Awake, alert and oriented times three. LABORATORY: WBCs have gone up to 18.1 with a hemoglobin 13.5 and hematocrit 40.7. Neutrophils 95.8. Sodium is 134, potassium 4, chloride 102, carbon dioxide 22, BUN 37, creatinine up slightly to 2.39. Blood sugars have run between 282 and 360. Preliminary blood cultures show no growth after 3 days. Chest x-ray per radiologic interpretation shows stable bilateral lower lobe airspace disease whit bilateral pleural effusion and stable emphysema. All other labs and films have been reviewed via the EMR. ASSESSMENT: 1. Acute exacerbation of chronic obstructive pulmonary disease secondary to aspiration pneumonia, community acquired, showing slow improvement with requirement of initiation of corticosteroids and continued aggressive pulmonary hygiene, now maintaining adequate O2 saturations with nasal cannula. 2. Aspiration pneumonia secondary to acute exacerbation of gastroesophageal reflux disease. 3. Diabetes mellitus, type 2. 4. Hypertension. 5. Coronary artery disease, by history with 2 stents. 6. Chronic kidney disease with baseline creatinine of 2.25 on admission with creatinine slightly elevated today. 7. Electrolyte imbalance with mild hyperkalemia, resolved. 8. Systemic inflammatory response secondary to aspiration pneumonia with the patient having a mild hypoxemia as noted on ABGs. 9. Constipation. PLAN: We will continue present supportive care including antibiotic therapy with clindamycin, azithromycin and Rocephin. We will continue on aggressive pulmonary hygiene. I am giving him a small amount of fluids due to his increasing creatinine. We will recheck his lab in the morning. Solu-Medrol has been tapered down to 60 mg q.8h. Blood sugars are slightly elevated and I will start him back on some Levemir long-acting insulin and maybe we can stabilize that. We will continue to encourage good pulmonary hygiene and hopefully he can be discharged in the next day or two. Dr. Duffy is the collaborating physician and available for consultation. [facility][id number]
[2017-03-05] MEDS ORDERED: AZITHROMYCIN IV 500 MG VIAL IVPB ONE (15:09)
[2017-03-05] MEDS ORDERED: SODIUM CHLORIDE 0.9% 250ML 250 ML ONE (15:09)
[2017-03-05] MEDS: IV SET AND CAP CHANGE INJ INJ SCH (15:16)
[2017-03-05] MEDS: AZITHROMYCIN IV 500 MG in SODIUM CHLORIDE 0.9% 250ML 250 ML IVPB SCH (15:17)
[2017-03-05] MEDS ORDERED: ENOXAPARIN SODIUM 30 MG/0.3 ML SYG SUBCU ONE (20:26)
[2017-03-05] MEDS: ENOXAPARIN SODIUM 40 MG/0.4 ML SYG SUBCU SCH (20:42)
[2017-03-05] MEDS: ATORVASTATIN 20 MG TAB PO SCH (20:42)
[2017-03-05] MEDS: FOLIC ACID 1 MG TAB PO SCH (20:42)
[2017-03-05] MEDS: INSULIN DETEMIR 100 UNITS/ML PEN SUBCU SCH (21:16)
[2017-03-06] MEDS ORDERED: CLINDAMYCIN IV 600MG 50 ML IVPB ONE ×4 (03:51→19:35)
[2017-03-06] MEDS: CLINDAMYCIN IV 600MG 600 MG in PREMIX BAG 1 BAG IVPB SCH ×3 (04:00→20:12)
[2017-03-06] MEDS: SODIUM CHLORIDE 0.9% (FLUSH) 10 ML SYG IV PRN ×2 (04:01→05:47)
[2017-03-06] MEDS: methylPREDNISolone SODIUM SUC 125 MG/2 ML VIAL IV SCH ×2 (05:47→16:14)
[2017-03-06] MEDS: PANTOPRAZOLE SODIUM TAB 40 MG PO SCH (05:48)
[2017-03-06] MEDS: INSULIN LISPRO 100 UNITS/ML PEN SUBCU SCH ×7 (07:30→20:50)
[2017-03-06] MEDS: LEVALBUTEROL NEBS 1.25 MG/3 ML VIAL NEB SCH ×3 (08:40→23:56)
[2017-03-06] MEDS: SALMETEROL INH SCH ×2 (08:40→20:21)
[2017-03-06] MEDS: FLUTICASONE INH SCH ×2 (08:40→20:21)
[2017-03-06] MEDS: [UNRECOGNIZED DRUG - OTHER] INH SCH ×2 (08:40→20:21)
[2017-03-06] MEDS ORDERED: SODIUM CHL 0.9% 50ML MIN-BAG+ 50 ML IVPB ONE ×2 (09:00→19:34)
[2017-03-06] MEDS ORDERED: cefTRIAXone SODIUM 1 GM VIAL ONE (09:00)
[2017-03-06] MEDS: METOPROLOL SUCCINATE XL 50 MG TAB PO SCH ×2 (09:04→20:10)
[2017-03-06] MEDS: guaiFENesin ER TAB 600 MG TAB PO SCH ×2 (09:04→20:09)
[2017-03-06] MEDS: BIFIDOBACTERIUM INFANTIS 4 MG CAP PO SCH ×2 (09:04→20:09)
[2017-03-06] MEDS: NIFEdipine XL 30 MG TAB PO SCH ×2 (09:04→20:09)
[2017-03-06] MEDS: cefTRIAXone SODIUM 1 GM in SODIUM CHL 0.9% 50ML MIN-BAG+ 50 ML IVPB SCH (09:04)
[2017-03-06] MEDS: ASPIRIN (CHEWABLE) 81 MG TAB PO SCH (09:04)
[2017-03-06] MEDS: SITagliptin 50 MG TAB PO SCH (09:04)
[2017-03-06] MEDS: POLYETHYLENE GLYCOL 3350 17 GM PCKT PO SCH ×2 (09:04→10:31)
[2017-03-06] MEDS: SODIUM CHLORIDE 0.9% (FLUSH) 10 ML SYG IV SCH ×2 (09:05→20:08)
[2017-03-06] MEDS ORDERED: SODIUM CHLORIDE 0.9% 250ML 250 ML ONE (15:48)
[2017-03-06] MEDS ORDERED: AZITHROMYCIN IV 500 MG VIAL IVPB ONE (15:48)
[2017-03-06] MEDS: AZITHROMYCIN IV 500 MG in SODIUM CHLORIDE 0.9% 250ML 250 ML IVPB SCH (15:57)
[2017-03-06] MEDS ORDERED: methylPREDNISolone SODIUM SUC 125 MG/2 ML VIAL ONE (16:12)
--- NOTE | 2017-03-06 17:00 | PN ---
DATE: 03/06/17 SUPERVISING PHYSICIAN: Erik Duffy M.D. SUBJECTIVE: The patient is lying in bed. He has had multiple large bowel movements. There are no complaints of constipation, abdominal pain, nausea or vomiting. He still gets short of breath with any exertion. It is worse in the morning than it is in the evening. He does wear oxygen at home. He sees Dr. Mtz, instructional technologist, as an outpatient. OBJECTIVE: VITAL SIGNS: He is afebrile, heart rate is 99, blood pressure 141/67 , respiratory rate 20, oxygen saturation at rest gets down as low as 91 and then it has been as high as 95%. His O2 sat has been as high as 5 liters nasal cannula. RESPIRATORY: Very diminished breath sounds. There is no wheezing at this time. Diminished at the bases. He only speaks in short phrases. CARDIAC : Regular rate and rhythm. ABDOMEN: Soft, nondistended, non-tender. Bowel sounds are positive. EXTREMITIES: No cyanosis, clubbing or edema. NEUROLOGIC: He is awake, alert and oriented times three. His WBCs are 17,200, hemoglobin and hematocrit are stable at 13.3 and 40.2. Neutrophils are 95.5%. Electrolytes are basically within normal limits. BUN 42, creatinine is down to 2, glucose has been running between 142 and 287. Hemoglobin A1c is 6.7, magnesium 2.6. Preliminary blood cultures show no growth after 4 days. All other labs and films have been reviewed via the EMR. ASSESSMENT: 1. Acute exacerbation of chronic obstructive pulmonary disease secondary to aspiration pneumonia, community acquired, showing slow improvement with requirement of initiation of corticosteroids and continued aggressive pulmonary hygiene, now maintaining O2 saturations with nasal cannula. 2. Aspiration pneumonia secondary to acute exacerbation of gastroesophageal reflux disease. 3. Diabetes mellitus, type 2. 4. Hypertension. 5. Coronary artery disease, by history with 2 stents. 6. Chronic kidney disease with baseline creatinine of 2.25 on admission with creatinine improved today. 7. Electrolyte imbalance with mild hyperkalemia, resolved. 8. Systemic inflammatory response secondary to aspiration pneumonia with the patient having a mild hypoxemia as noted on ABGs. 9. Constipation, now resolved. PLAN: We will continue present supportive care. Will continue on his antibiotic regimen that includes Clindamycin, Azithromycin and Rocephin. I have tapered down his steroids. Will continue with aggressive pulmonary hygiene. At this point, his long-acting insulin has decreased his blood sugars , but I may have to adjust that tomorrow as they are still quite elevated, but hopefully they will normalize as we decrease the steroids. I have ordered an ambulation study for today and tomorrow to make sure he is safe to go home. He does wear home oxygen. In addition to seeing his primary care physician, he will need a followup with his instructional technologist, Dr. Mtz. Meanwhile, we will continue to monitor him closely and followup as needed. Dr. Duffy is the collaborating physician available for consultation. [facility][id number]
[2017-03-06] MEDS ORDERED: ENOXAPARIN SODIUM 30 MG/0.3 ML SYG SUBCU ONE (19:33)
[2017-03-06] MEDS: methylPREDNISolone SODIUM SUC 40 MG/ML VIAL IV SCH (20:07)
[2017-03-06] MEDS: ATORVASTATIN 20 MG TAB PO SCH (20:09)
[2017-03-06] MEDS: ENOXAPARIN SODIUM 40 MG/0.4 ML SYG SUBCU SCH (20:09)
[2017-03-06] MEDS: FOLIC ACID 1 MG TAB PO SCH (20:09)
[2017-03-06] MEDS: INSULIN DETEMIR 100 UNITS/ML PEN SUBCU SCH (20:50)
[2017-03-07] MEDS: methylPREDNISolone SODIUM SUC 40 MG/ML VIAL IV SCH ×3 (04:10→20:18)
[2017-03-07] MEDS: SODIUM CHLORIDE 0.9% (FLUSH) 10 ML SYG IV PRN (04:10)
[2017-03-07] MEDS: CLINDAMYCIN IV 600MG 600 MG in PREMIX BAG 1 BAG IVPB SCH ×3 (04:15→20:17)
[2017-03-07] MEDS: PANTOPRAZOLE SODIUM TAB 40 MG PO SCH (06:18)
--- NOTE | 2017-03-07 06:32 | RAD ---
Procedure: XR CHEST 2 VIEWS Exam Date: 03/07/2017 Ordering Provider: JOANNA LEMOS Clinical Indication: copd Comparison: 03/05/2017 Findings: Cardiomediastinal silhouette is stable. Focal lung consolidation: Lungs are hyperinflated. Stable bibasilar infiltrates. Evidence of prior granulomatous disease. Pleural effusion: Small bilateral pleural effusions. Pneumothorax: None Acute bony or soft tissue abnormality: None Impression: 1. Stable lower lobe infiltrates bilaterally. 2. Small bilateral pleural effusions. Electronically signed by: Thanh Cleveland MD 03/07/2017 6:31 AM CDT
[2017-03-07] MEDS: INSULIN LISPRO 100 UNITS/ML PEN SUBCU SCH ×7 (07:44→21:04)
[2017-03-07] MEDS: LEVALBUTEROL NEBS 1.25 MG/3 ML VIAL NEB SCH ×3 (09:08→23:50)
[2017-03-07] MEDS: [UNRECOGNIZED DRUG - OTHER] INH SCH ×2 (09:09→21:21)
[2017-03-07] MEDS: SALMETEROL INH SCH ×2 (09:09→21:21)
[2017-03-07] MEDS: FLUTICASONE INH SCH ×2 (09:09→21:21)
[2017-03-07] MEDS ORDERED: SODIUM CHL 0.9% 50ML MIN-BAG+ 50 ML IVPB ONE (09:14)
[2017-03-07] MEDS ORDERED: cefTRIAXone SODIUM 1 GM VIAL ONE (09:15)
[2017-03-07] MEDS: guaiFENesin ER TAB 600 MG TAB PO SCH ×2 (09:19→21:06)
[2017-03-07] MEDS: ASPIRIN (CHEWABLE) 81 MG TAB PO SCH (09:19)
[2017-03-07] MEDS: METOPROLOL SUCCINATE XL 50 MG TAB PO SCH ×2 (09:19→21:06)
[2017-03-07] MEDS: BIFIDOBACTERIUM INFANTIS 4 MG CAP PO SCH ×2 (09:20→21:04)
[2017-03-07] MEDS: SITagliptin 50 MG TAB PO SCH (09:20)
[2017-03-07] MEDS: cefTRIAXone SODIUM 1 GM in SODIUM CHL 0.9% 50ML MIN-BAG+ 50 ML IVPB SCH (09:20)
[2017-03-07] MEDS: NIFEdipine XL 30 MG TAB PO SCH ×2 (09:20→21:06)
[2017-03-07] MEDS: SODIUM CHLORIDE 0.9% (FLUSH) 10 ML SYG IV SCH ×2 (09:21→21:06)
[2017-03-07] MEDS: POLYETHYLENE GLYCOL 3350 17 GM PCKT PO SCH (09:21)
--- NOTE | 2017-03-07 10:50 | PN ---
DATE: 03/07/17 SUPERVISING PHYSICIAN: Erik Duffy M.D. SUBJECTIVE: The patient is lying in his bed. He is in the process of having a breathing treatment. Previously, he has had problems in the morning with shortness of breath but today he feels much better. He denies any constipation, nausea or vomiting, diarrhea or chest pain. Initially, I had thought we may start him on some Atrovent but he says he cannot urinate when he is on an anticholinergic. OBJECTIVE: VITAL SIGNS: He is afebrile, heart rate is 93, blood pressure 149/55, respiratory rate 22, oxygen saturation 92% on 3 liters nasal cannula. RESPIRATORY: Essentially clear to auscultation bilaterally. He is diminished throughout, especially at the bases. CARDIAC: Regular rate and rhythm. ABDOMEN: Soft, nondistended, non-tender. Bowel sounds are positive. EXTREMITIES: No cyanosis, clubbing or edema. NEUROLOGIC: He is awake, alert and oriented times three. LABORATORY: His WBCs have decreased down to 11,8 today from 17.2 yesterday. His hemoglobin and hematocrit are stable at 13.4 and 40.3. Neutrophils have decreased to 92.4% . Electrolytes are basically within normal limits. Creatinine has decreased from 2 yesterday to 1.66 today. His BUN is 38, glucoses have run between 169 and 279. Calcium is 8. His final blood cultures show no growth after 5 days. Chest x-ray shows stable lower lobe infiltrates bilaterally. Bilateral small pleural effusions. All other labs and films have been reviewed via the EMR.. ASSESSMENT: 1. Acute exacerbation of chronic obstructive pulmonary disease secondary to aspiration pneumonia showing slow improvement with requirement of corticosteroids and aggressive pulmonary hygiene. He is now maintaining his oxygen saturations in low 90s with oxygen via nasal cannula. 2. Aspiration pneumonia secondary to acute exacerbation of gastroesophageal reflux disease. 3. Diabetes mellitus, type 2. 4. Hypertension. 5. Coronary artery disease, by history with 2 stents. 6. Chronic kidney disease with baseline creatinine of 2.25 on admission with creatinine significantly improved to 1.66 7. Electrolyte imbalance with mild hyperkalemia, resolved. 8. Systemic inflammatory response secondary to aspiration pneumonia with the patient having a mild hypoxemia as noted on ABGs. 9. Constipation, now resolved. PLAN: We will continue present supportive care. I have again decreased his steroid dosage and he will start on p.o. prednisone in the morning. I am making a referral to pulmonary t rehabilitation on discharge and he will need a followup with Dr. Mtz. I have done routine labs. I will not start him on any Atrovent as he has had adverse effects from any anticholinergic. As he comes down on the steroids, we will need to watch his blood sugars. Prior to admission he was not on a long acting insulin and he is on a low-dose of Levemir right now and that may need to be adjusted or discontinued. I will also start some probiotics on him. Clinically, he is much improved and hopefully he can be discharged tomorrow. Meanwhile, we will continue to monitor him closely and followup as needed. Dr. Duffy is the collaborating physician available for consultation. [id number] [facility]
[2017-03-07] MEDS ORDERED: CLINDAMYCIN IV 600MG 50 ML IVPB ONE ×3 (12:29→20:04)
[2017-03-07] MEDS ORDERED: SODIUM CHLORIDE 0.9% 250ML 250 ML ONE (15:30)
[2017-03-07] MEDS ORDERED: AZITHROMYCIN IV 500 MG VIAL IVPB ONE (15:31)
[2017-03-07] MEDS: AZITHROMYCIN IV 500 MG in SODIUM CHLORIDE 0.9% 250ML 250 ML IVPB SCH (15:37)
[2017-03-07] MEDS ORDERED: ENOXAPARIN SODIUM 30 MG/0.3 ML SYG SUBCU ONE (20:05)
[2017-03-07] MEDS: FOLIC ACID 1 MG TAB PO SCH (21:04)
[2017-03-07] MEDS: INSULIN DETEMIR 100 UNITS/ML PEN SUBCU SCH (21:05)
[2017-03-07] MEDS: ATORVASTATIN 20 MG TAB PO SCH (21:05)
[2017-03-07] MEDS: ENOXAPARIN SODIUM 40 MG/0.4 ML SYG SUBCU SCH (21:06)
[2017-03-08] MEDS: CLINDAMYCIN IV 600MG 600 MG in PREMIX BAG 1 BAG IVPB SCH ×2 (04:11→12:22)
[2017-03-08] MEDS: PANTOPRAZOLE SODIUM TAB 40 MG PO SCH (06:24)
[2017-03-08] MEDS: INSULIN LISPRO 100 UNITS/ML PEN SUBCU SCH ×4 (07:59→12:45)
[2017-03-08] MEDS ORDERED: SODIUM CHL 0.9% 50ML MIN-BAG+ 50 ML IVPB ONE (08:27)
[2017-03-08] MEDS ORDERED: cefTRIAXone SODIUM 1 GM VIAL ONE ×2 (08:28)
[2017-03-08] MEDS ORDERED: predniSONE 20 MG TAB PO SCH (09:00)
[2017-03-08] MEDS: guaiFENesin ER TAB 600 MG TAB PO SCH (09:11)
[2017-03-08] MEDS: METOPROLOL SUCCINATE XL 50 MG TAB PO SCH (09:11)
[2017-03-08] MEDS: BIFIDOBACTERIUM INFANTIS 4 MG CAP PO SCH (09:11)
[2017-03-08] MEDS: SODIUM CHLORIDE 0.9% (FLUSH) 10 ML SYG IV SCH (09:12)
[2017-03-08] MEDS: cefTRIAXone SODIUM 1 GM in SODIUM CHL 0.9% 50ML MIN-BAG+ 50 ML IVPB SCH (09:12)
[2017-03-08] MEDS: NIFEdipine XL 30 MG TAB PO SCH (09:12)
[2017-03-08] MEDS: POLYETHYLENE GLYCOL 3350 17 GM PCKT PO SCH (09:13)
[2017-03-08] MEDS: ASPIRIN (CHEWABLE) 81 MG TAB PO SCH (09:13)
[2017-03-08] MEDS: SITagliptin 50 MG TAB PO SCH (09:13)
[2017-03-08] MEDS: LEVALBUTEROL NEBS 1.25 MG/3 ML VIAL NEB SCH (09:30)
[2017-03-08 10:02] VITALS: BP 173/72; TEMP 97.6; O2SAT 91
[2017-03-08] MEDS: [UNRECOGNIZED DRUG - OTHER] INH SCH (10:14)
[2017-03-08] MEDS: SALMETEROL INH SCH (10:14)
[2017-03-08] MEDS: FLUTICASONE INH SCH (10:14)
--- NOTE | 2017-03-09 17:54 | DS ---
SUPERVISING PHYSICIAN: Erik Duffy M.D. DISCHARGE DIAGNOSIS: 1. Acute exacerbation of chronic obstructive pulmonary disease secondary to aspiration pneumonia showing slow improvement with corticosteroids and aggressive pulmonary hygiene and maintaining O2 saturations now on nasal cannula. 2. Aspiration pneumonia secondary to acute exacerbation of gastroesophageal reflux disease. 3. Diabetes mellitus, type 2. 4. Hypertension. 5. Coronary artery disease, by history with 2 stents. 6. Chronic kidney disease with baseline creatinine of 2.25 on admission with continued improvement in the creatinine level at 1.66 at discharge. 7. Electrolyte imbalance with mild hyperkalemia, resolved. 8. Systemic inflammatory response on admission secondary to aspiration pneumonia with the patient having mild hypoxemia initially on admission as noted on ABGs improved with treatment. 9. Constipation, improved with treatment. HISTORY OF PRESENT ILLNESS: Mr. Sellers is an 81 year-old male patient of Dr. Ortez that presented initially to the Emergency Department complaining of shortness of breath that had started around 3:00 AM on the morning of admission. The patient noted that he started having some choking episodes the previous day and had an exacerbation of his GERD during the middle of the night, felt like he had aspirated some stomach acid. He noted that his O2 saturations were in the 80s at home despite the use of oxygen via nasal cannula which he normally wears. He presented to the Emergency Department. Initial vital signs showed that he had a temperature of 101.2, satting 74% on room air with obvious shortness of breath. After a breathing treatment and a Venti mask at 55%, his O2 saturations did improve to 95%. Blood pressure was showing to be stable at 158/73. He does have a significant history of chronic obstructive pulmonary disease and gastroesophageal reflux disease. He was last hospitalized for pneumonia in March 2015. He is currently followed by a pulmonology specialist, Dr. Mtz in [place]. On admission, laboratory studies in the Emergency Department showed a white count of 5,200 but he did have a left shift. Initial blood gas analysis showed hypoxemia with PO2 of 60 with pH of 7.3, but he was satting 89% on room air. PCO2 was within normal limits at 37. His chemistries also showed that he had a mild hyponatremia, but he does have a history of chronic renal insufficiency with a creatinine baseline between 2.25 and 2.5. Radiographic studies initially in the Emergency Department showed that he had a single view chest that showed right basilar pneumonia. Dr. Jean, E. R. physician, requested the patient be admitted for aspiration pneumonia community acquired as the patient was febrile with hypoxemia and hypoxia as noted on current ABGs and laboratory studies reporting the aspiration event in the previous 12 hours. The patient was admitted to the Medical/Surgical floor for aspiration pneumonia community acquired for initiation of parenteral antibiotics and further stabilization, and ongoing bronchial hygiene. He was in stable condition at time of admission. LABORATORY STUDIES: Initially his white count on admission was 5,200. Shortly after admission it had gone up to 15.7 and maximized out at 18.1 and prior to discharge was done to 11.8. Hemoglobin and hematocrit were stable and at discharge was 13.4 and hematocrit 40.3. Platelet count was 238,000. Differential did show a left shift. This continued through admission but was showing some slight improvement prior to discharge. Blood gas analysis on room air showed he was satting 89% with a pH of 7.37, PO2 of 60, PCO2 of 37 with bicarb 20.7. Chemistries on admission showed hyperkalemia of 5.2, otherwise electrolytes were within normal limits. BUN 26, creatinine 2.25. Hemoglobin A1c was 6.7. Liver functions showed to be within normal limits. Initial magnesium was 2.6, prior to discharge it had gone down to 2.0. Cardiac enzymes on admission showed to be negative. Blood sugars were elevated between 145 and 335. Urinalysis on admission showed greater than 300 protein with a small amount of blood. Otherwise within normal limits. MICROBIOLOGY: Influenza A and B swabs were negative. Blood cultures were negative after 5 days. No sputum culture was ever received for culture. RADIOLOGY: Initial chest x-ray in the Emergency Department showed per radiology interpretation right basilar pneumonia. He had multiple x-rays, including 4 x-rays in total, last x-ray on 03/07/17 in followup after initiation of treatment and prior to discharge showed a stable lower lobe infiltrate bilaterally with small bilateral pleural effusions per radiology interpretation. HOSPITAL COURSE: Mr. Sellers was admitted as noted on 03/02/17 with concerns for aspiration pneumonia. He required supplemental oxygen via Venti mask and was started on steroids which were slowly tapered to p.o. prior to discharge. He had clinically shown good improvement, although this was slow. His x-rays were showing improvement as well as his white count. He did require some corticosteroid administration as he started wheezing significantly on day 2 admission. This was continued and titrated down to p.o. dose prior to discharge. It was felt that on the day of discharge he had continually shown improvement clinically and was ready to be followed in the outpatient setting. PLAN: Mr. Sellers was discharged on 03/08/17 with instructions to followup with Dr. Roqeu as scheduled in 1 to 2 weeks. He was to call and schedule an appointment after discharge. He is to resume home medications as instructed to wear his oxygen 18/12 until he was seen in followup with Dr. Mtz and to wear it at a flow at least of 1.25 to 2 liters and keep his oxygen saturations between a goal of 92 to 94%. He was told to return to the hospital should he have any worsening of his symptoms. At discharge, new prescriptions included: 1. Xopenex 45 mcg in haled every 4 hours as needed, 1 inhaler. 2. Align 4 mg twice daily, #30. 3. Cefdinir 300 mg twice daily, #8. 4. Guaifenesin 600 mg twice daily. 5. Prednisone p.o. 10 mg tablet tapered dose. Instructions were 40 mg titrate 10 mg every 3 days until gone, quantity sufficient. Diet at discharge was diabetic diet. Activity increase as tolerated. Wear oxygen at all times. Condition at discharge was stable and improved. [facility][id number] [facility]
== END 2017-03-08 13:06 | disposition home or self-care (01) | DRG 177 ==
LOC: ER 08:40 → MS 12:25
PROVIDERS: ADMIT Nurse Practitioner Family; ATTEND Nurse Practitioner Family
DX: J69.0 Pneumonitis due to inhalation of food and vomit (principal); J96.01 Acute respiratory failure with hypoxia; J44.1 Chronic obstructive pulmonary disease with (acute) exacerbation; E87.1 Hypo-osmolality and hyponatremia; K21.9 Gastro-esophageal reflux disease without esophagitis; E11.22 Type 2 diabetes mellitus with diabetic chronic kidney disease; K59.00 Constipation, unspecified; I12.9 Hypertensive chronic kidney disease with stage 1 through stage 4 chronic kidney disease, or unspecified chronic kidney disease; N18.9 Chronic kidney disease, unspecified; I25.10 Atherosclerotic heart disease of native coronary artery without angina pectoris; E87.5 Hyperkalemia; I65.22 Occlusion and stenosis of left carotid artery; N40.0 Benign prostatic hyperplasia without lower urinary tract symptoms; E66.9 Obesity, unspecified; Z99.81 Dependence on supplemental oxygen; Z95.5 Presence of coronary angioplasty implant and graft; I25.2 Old myocardial infarction; Z85.51 Personal history of malignant neoplasm of bladder; Z85.528 Personal history of other malignant neoplasm of kidney; Z90.5 Acquired absence of kidney; Z79.84 Long term (current) use of oral hypoglycemic drugs; Z79.51 Long term (current) use of inhaled steroids; Z79.82 Long term (current) use of aspirin; Z79.899 Other long term (current) drug therapy; Z88.8 Allergy status to other drugs, medicaments and biological substances; Z87.891 Personal history of nicotine dependence; Z68.24 Body mass index [BMI] 24.0-24.9, adult

== ENCOUNTER → 2017-04-16 | Outpatient (CLI) | payer MEDICARE, OTHER | END | disposition home or self-care (01) | LOC: GMAJ 15:10 | PROVIDERS: ATTEND Family Medicine | DX: I10 Essential (primary) hypertension (principal) ==

== ENCOUNTER → 2017-07-23 | Outpatient (CLI) | payer MEDICARE, OTHER ==
--- NOTE | 2017-07-23 10:38 | CT ---
Chest CT without intravenous contrast HISTORY: Multiple lung nodules COMPARISON: CT of June 20, 2016, December 24, 2015, September 08, 2015 and April 30, 2015 TECHNIQUE: Routine CT protocol for chest without intravenous contrast administration. Image reformations performed in coronal and sagittal planes. Imaging was performed with automated exposure protocol to minimize radiation dose. FINDINGS: Lungs are stably aerated bilaterally. Extensive centrilobular emphysematous changes again identified in both lungs. No concerning mass identified in either lung. Stable appearance of benign calcified granuloma again seen in subpleural space of left upper lobe. Several additional tiny benign-appearing noncalcified nodules again seen in both lungs, with stable configuration and respective dimensions when compared to prior studies in 2016 and 2015. Significantly fewer lung nodules bilaterally since 2015 study.. No pleural effusion or airspace consolidation nor bronchiectasis nor pleural effusion in either lung. Very minimal soft tissue density again identified in the left posterior lateral aspect of lower trachea, possibly due to retained secretions. Multiple nonenlarged lymph nodes again identified throughout the mediastinum. No concerning axillary nor hilar lymphadenopathy on either side. Cardiac dimensions are within normal limits without pericardial effusion. Thoracic aorta is normal in caliber without aneurysmal dilatation. Minimal to mild calcific atherosclerotic deposition along coronary vessels and thoracic aorta. Thoracic bony structures are intact with unremarkable alignment, with multilevel degenerative changes in thoracic spine. Limited visualization of upper abdomen demonstrate no concerning finding. Mild hiatal hernia. IMPRESSION: 1. Stable or improved appearance of benign-appearing calcified and noncalcified nodules in both lungs. No further follow-up is recommended at this time 2. Advanced centrilobular emphysematous changes again seen in both lungs 3. No concerning thoracic lymphadenopathy. Electronically signed by: Kevin Richardson MD 07/23/2017 10:37 AM [facility]
== END ==
LOC: CT 09:00
PROVIDERS: ATTEND Internal Medicine
DX: J98.4 Other disorders of lung (principal); J44.9 Chronic obstructive pulmonary disease, unspecified; R06.09 Other forms of dyspnea

== ENCOUNTER → 2017-11-22 | Outpatient (CLI) | payer MEDICARE, OTHER | LOC: GMAJS 15:28 | PROVIDERS: ATTEND Physician Assistant | DX: L03.115 Cellulitis of right lower limb (principal); L02.611 Cutaneous abscess of right foot ==

== ENCOUNTER 2018-03-31 09:58 | Inpatient (IN) | payer MEDICARE, OTHER ==
[2018-03-31] MEDS ORDERED: IPRATROPIUM/ALBUTEROL 3 ML VIAL NEB ONE (10:18)
[2018-03-31] MEDS ORDERED: ASPIRIN (CHEWABLE) 81 MG TAB PO ONE (10:18)
--- NOTE | 2018-03-31 10:31 | ED.PDOC ---
History of Present Illness - General Chief Complaint: Respiratory Problem Stated Complaint: short of breath Time Seen by Provider: 03/31/18 10:09 Source: patient Exam Limitations: no limitations - History of Present Illness Initial Comments: Patient is an 82 yo M s/p AMI with PTCA x 2 in 2010 and currently with NIDDM and COPD who presents with increasing dyspnea for one week. He said he had "the flu" although he wasn't tested for it. Shortly after, he said he got shortness of breath. He started using oxygen by [place] at 2.5 L for the past week but says the dyspnea has not changed. He can only walk about 15 feet now without getting dyspneic enough to need to rest. He has a chronic cough that is productive of yellow sputum but over the past week the frequency of his cough has increased and the sputum has become green. He denies any chest pain. He was assigned to wear a "heart monitor" yesterday for a "buzzing" feeling that he has been having in his chest but he has not turned it in to his physician for evaluation, yet. He does not currently use tobacco. No other complaints. Timing/Duration: 1 week Severity: moderate Improving Factors: rest Worsening Factors: movement Associated Symptoms: other - see HPI Allergies/Adverse Reactions: Allergies Budesonide [From Symbicort] Allergy (Verified 04/03/15 18:03) Formoterol [From Symbicort] Allergy (Verified 04/03/15 18:03) Milk Protein Extract [From Spiriva] Allergy (Verified 04/03/15 18:03) Tiotropium [From Spiriva] Allergy (Verified 04/03/15 18:03) Home Medications: Ambulatory Orders Aspirin [Baby Aspirin] 162 mg PO DAILY 10/10/12 Folic Acid 1 mg PO BEDTIME 10/10/12 Metoprolol Succinate [Toprol Xl] 50 mg PO BID 10/10/12 Nifedipine [Procardia Xl] 60 mg PO BID 10/10/12 Rosuvastatin Calcium [Crestor] 20 mg PO BEDTIME 10/10/12 Fluticasone-Salmeterol [Advair Hfa 230-21 Mcg/Act] 1 aer IN BID 04/03/15 Pantoprazole Tablet [Protonix] 40 mg PO ACBK 04/03/15 Polyethylene Glycol 3350 [Miralax] 17 gm PO DAILY 04/03/15 SITagliptin [Januvia] 50 mg PO DAILY 04/03/15 Review of Systems - Review of Systems Constitutional: States: no symptoms reported EENTM: States: no symptoms reported Respiratory: States: see HPI Cardiology: States: see HPI Gastrointestinal/Abdominal: States: no symptoms reported Genitourinary: States: no symptoms reported Musculoskeletal: States: no symptoms reported Skin: States: no symptoms reported Neurological: States: no symptoms reported Endocrine: States: no symptoms reported Hematologic/Lymphatic: States: no symptoms reported Past Medical History (General) - Patient Medical History Hx Seizures: No Hx Stroke: Yes - mini strokes x2 Hx Asthma: No Hx of COPD: Yes Hx Cardiac Disorders: Yes Hx Congestive Heart Failure: No Hx Pacemaker: No Hx Hypertension: Yes Hx Diabetes: Yes - medication controled Hx Renal Disease: Yes - right kidney removal Hx MRSA: No - Vaccination History Hx Tetanus, Diphtheria Vaccination: Yes Hx Influenza Vaccination: No - 2014 Hx Pneumococcal Vaccination: Yes - 2014 - Social History Hx Tobacco Use: Yes Hx Alcohol Use: No Hx Substance Use: No Hx Physical Abuse: No Hx Emotional Abuse: No Family Medical History - Family History Father Family History: Unknown Age (years): 71 Living Status: Hx Family;Other: father of annursim Mother Family History: Unknown Age (years): 72 Hx Family Diabetes: Yes Physical Exam - Physical Exam General Appearance: Alert Eye Exam: bilateral normal Ears, Nose, Throat: normal ENT inspection Neck: non-tender, full range of motion, supple Respiratory: chest non-tender, other - distant breath sounds. No rales/rhonchi/ wheezes. No egophony. Cardiovascular/Chest: normal peripheral pulses, tachycardia, other - regular rhythm Gastrointestinal/Abdominal: normal bowel sounds, non tender, soft Back Exam: normal inspection, no CVA tenderness Extremity: normal range of motion, non-tender Neurologic: no motor/sensory deficits, alert, normal mood/affect, oriented x 3 Skin Exam: normal color Lymphatic: no adenopathy Progress - Progress Progress: 03/31/18 11:02 Laboratory Tests 03/31/18 03/31/18 03/31/18 10:21 10:26 10:26 WBC RBC Hgb Hct MCV MCH MCHC RDW Plt Count MPV Absolute Neuts (auto) Absolute Lymphs (auto) Absolute Monos (auto) Absolute Eos (auto) Absolute Basos (auto) Neutrophils % Lymphocytes % Monocytes % Eosinophils % Basophils % PT INR PTT (SP) pCO2 pO2 HCO3 ABG pH ABG O2 Saturation ABG Base Excess ABG Deoxyhemoglobin Oxyhemoglobin % Carboxyhemoglobin % Methemoglobin % Sat Calc Total Hemoglobin Sodium 140 Potassium 4.4 Chloride 102 Carbon Dioxide 24 Anion Gap 18.4 H BUN 36 H Creatinine 2.72 H BUN/Creatinine Ratio 13.2 POC Glucose 159 H Random Glucose 164 H Serum Osmolality 291.4 Calcium 9.1 Total Bilirubin 0.9 AST 25 ALT 20 Alkaline Phosphatase 108 Creatine Kinase 129 CK-MB (CK-2) 3.1 CK-MB (CK-2) % Not Reportable Troponin I 0.03 B-Natriuretic Peptide 113.0 H Serum Total Protein 6.9 Albumin 3.0 L Globulin 3.9 H Albumin/Globulin Ratio 0.8 L 03/31/18 03/31/18 03/31/18 10:26 10:26 10:43 WBC 11.7 H RBC 5.32 Hgb 16.3 Hct 48.4 MCV 91.1 MCH 30.6 MCHC 33.7 RDW 14.0 Plt Count 282 MPV 8.4 Absolute Neuts (auto) 9.20 H Absolute Lymphs (auto) 0.50 L Absolute Monos (auto) 1.80 H Absolute Eos (auto) 0.20 Absolute Basos (auto) 0.10 Neutrophils % 78.4 H Lymphocytes % 4.0 L Monocytes % 15.3 H Eosinophils % 1.5 Basophils % 0.8 PT 10.9 INR 1.09 PTT (SP) 30.8 pCO2 39 pO2 62 L HCO3 23.3 ABG pH 7.390 ABG O2 Saturation 92.6 L ABG Base Excess -0.9 ABG Deoxyhemoglobin 7.3 H Oxyhemoglobin % 91.2 L Carboxyhemoglobin % 0.7 Methemoglobin % Sat 0.7 Calc Total Hemoglobin 14.8 Sodium Potassium Chloride Carbon Dioxide Anion Gap BUN Creatinine BUN/Creatinine Ratio POC Glucose Random Glucose Serum Osmolality Calcium Total Bilirubin AST ALT Alkaline Phosphatase Creatine Kinase CK-MB (CK-2) CK-MB (CK-2) % Troponin I B-Natriuretic Peptide Serum Total Protein Albumin Globulin Albumin/Globulin Ratio EKG read by me showed sinus tachycardia, no ST elevations nor depressions, No LBBB. Cardiac enzymes negative. WBC 11.7 with 78% neutrophils. CXR showed RLL infiltrates. Blood cultures taken and sent. Duonebs x one given. Rocephin 1 gram IV and Azithromycin 500 mg po x one given. Patient admitted to the floor. Departure - Departure Clinical Impression: Pneumonia, COPD exacerbation, Hypoxemia Disposition: Admit Patient Condition: Fair Departure Forms: ED Discharge - Pt. Copy, Patient Portal Self Enrollment Diet: diabetic diet Activity: increase activity as tolerated Referrals: Keith Roque MD [Primary Care Provider] - 1-2 Weeks Home Medications: Ambulatory Orders Aspirin [Baby Aspirin] 162 mg PO DAILY 10/10/12 Folic Acid 1 mg PO BEDTIME 10/10/12 Metoprolol Succinate [Toprol Xl] 50 mg PO BID 10/10/12 Nifedipine [Procardia Xl] 60 mg PO BID 10/10/12 Rosuvastatin Calcium [Crestor] 20 mg PO BEDTIME 10/10/12 Fluticasone-Salmeterol [Advair Hfa 230-21 Mcg/Act] 1 aer IN BID 04/03/15 Pantoprazole Tablet [Protonix] 40 mg PO ACBK 04/03/15 Polyethylene Glycol 3350 [Miralax] 17 gm PO DAILY 04/03/15 SITagliptin [Januvia] 50 mg PO DAILY 04/03/15
[2018-03-31] MEDS ORDERED: methylPREDNISolone SODIUM SUC 125 MG/2 ML VIAL IV ONE (10:43)
--- NOTE | 2018-03-31 10:44 | RAD ---
PROCEDURE: Chest,2 Views CLINICAL HISTORY: dyspnea and cough INDICATION: Same as above COMPARISON: CT chest done on 07/23/2017 TECHNIQUE: PA and and lateral chest radiographs were obtained. FINDINGS: Compared to the CT chest done on 07/23/2017 there is interval appearance of moderate size infiltrates in the right lower lung zone. Follow-up to complete resolution of this finding is suggested There are no pneumothoraces or pleural effusions. The pulmonary vascularity is normal The cardiomediastinal silhouette is unremarkable for patient's age and sex. IMPRESSION: Compared to the CT chest done on 07/23/2017 there is interval appearance of moderate size infiltrates in the right lower lung zone. Follow-up to complete resolution of this finding is suggested Electronically signed by: Tanner Emmanuel MD 03/31/2018 10:43 AM [facility] Workstation: [id number]
[2018-03-31] MEDS ORDERED: cefTRIAXone SODIUM 1 GM in SODIUM CHL 0.9% 50ML MIN-BAG+ 50 ML IVPB ONE (10:56)
[2018-03-31] MEDS ORDERED: SODIUM CHLORIDE 0.9% 1000ML 1,000 ML IVS PRN (10:57)
[2018-03-31] MEDS ORDERED: AZITHROMYCIN 250 MG TAB PO ONE (10:57)
[2018-03-31] MEDS ORDERED: cefTRIAXone SODIUM 1 GM VIAL ONE (10:59)
[2018-03-31] MEDS ORDERED: SODIUM CHL 0.9% 50ML MIN-BAG+ 50 ML IVPB ONE (10:59)
--- NOTE | 2018-03-31 11:24 | HP ---
SUPERVISING PHYSICIAN: Hu Martinez MD CHIEF COMPLAINT: Shortness of breath. HISTORY OF PRESENT ILLNESS: Mr. Sellers is an 82 year-old male patient who is insulin-dependent diabetic and has a longstanding history of chronic obstructive pulmonary disease who presented with increasing dyspnea over the last week. He noted that he had flu-like symptoms but never got tested. Shortly after he started having symptoms he became short of breath and started using his oxygen at home on nasal canula, 2 1/2 liters, but noted the dyspnea was unchanged. He is only able to walk about 15 feet without getting significantly dyspneic and needs to rest. His cough now has become productive, purulent in nature and he has not seen anybody for treatment. He is denying any chest pain, notes that he was assigned to a heart monitor by cardiology for further workup of what he reports as "buzzing" in his chest but denied any chest pain. His initial laboratory studies showed a leukocytosis of 11,700 with left shift. Blood gas analysis showed a mild hypoxia with a P02 of 62, saturation 92% on 2 liters nasal cannula with a pH of 7.36, bicarb 23 and PC02 of 39. Chemistries showed an elevated BUN and creatinine at 2.72, however, patient does have a history of chronic renal failure with a baseline creatinine noted to be around 2.5 and diagnosis of renal carcinoma in the 60s. His lactic acid was elevated at 2.4. Liver functions show to be was negative. BNP was slightly elevated at 113, troponin 0.03. Chest x-ray per radiology interpretation, comparison to a CT that was done in February same year noted internal appearance of moderate sized infiltrate in the right lower lung zone. Given the fact that the patient has worsening symptoms and concerns for previous possible influenza-like illness and findings on chest x-ray concerning for right lower lobe pneumonia with leukocytosis and elevated lactic acid, the patient is now going to be admitted for further treatment and evaluation of right lower lobe pneumonia, community acquired, with concerns for early sepsis. In the emergency room physician, the patient was initiated on antibiotics after blood cultures were drawn, with Rocephin and azithromycin and is now going to be admitted for further treatment. He is admitted in stable condition. PAST MEDICAL HISTORY: 1. Bladder cancer. 2. Coronary artery disease with a history of myocardial infarctions. 3. Diabetes mellitus type 2. 4. Chronic obstructive pulmonary disease. 5. Hypertension. 6. History of diverticulosis. 7. Chronic renal failure with a creatinine baseline per history known to be around 2.2 to 2.5. 8. Renal carcinoma diagnosed in 1963. 9. Carotid artery disease with 100% occluded left carotid. 10. Gastroesophageal reflux disease. 11. Benign prostatic hypertrophy without obstruction. PAST SURGICAL HISTORY: 1. Nephrectomy due to renal carcinoma in 1963. 2. Carotid endarterectomy right side in 2002. 3. Fracture repair of the right hand. 4. PTCA coronary angioplasty in 2010 with 2 stints in the RCA. 5. Vasectomy. 6. Colonoscopy in 2012 with noted benign polyps and diverticulosis. CURRENT MEDICATIONS: 1. Aspirin 162 mg daily. 2. Folic acid 1 mg at bedtime. 3. Advair 230-21 mcg per aspiration one inhaled b.i.d. 4. Protonix 40 mg at breakfast. 5. Procardia XL 60 mg b.i.d. 6. Metoprolol 50 mg b.i.d. 7. Januvia 50 mg daily. 8. Crestor 20 mg daily. . 9. MiraLAX 17 grams daily. ALLERGIES: BUDESONIDE, FORMOTEROL, MILK PROTEIN EXTRACT, TIOTROPIUM. FAMILY HISTORY: Positive for chronic obstructive pulmonary disease, cancer and diabetes. SOCIAL HISTORY: The patient is retired. He previously worked as a mariscal. He does have a longstanding history of smoking but quit approximately 27 years previously. He livers in [place], [place], is and denies alcohol or drug use. REVIEW OF SYSTEMS: CONSTITUTIONAL: Noted some chills and subjective fever. HEENT: Denies any nasal congestion, earache, sore throat. RESPIRATORY: As noted in the history of present illness, increase in dyspnea with exertional dyspnea and productive sputum. CARDIOVASCULAR: No reported chest pains but currently being followed by Cardiology for questionable arrhythmias.. GASTROINTESTINAL: Denies any diarrhea, nausea or vomiting or constipation. GENITOURINARY: Denies any history of hematuria, nocturia, dysuria or other urinary symptoms. MUSCULOSKELETAL: Generalized malaise. NEUROLOGIC: Denies any ataxia, seizure activity, syncopal episodes or other neurological focal deficits. ENDOCRINE: Positive for insulin-dependent diabetes but no reported polydipsia, excessive urination or other symptoms PHYSICAL EXAMINATION: VITAL SIGNS: On admission, temperature 98.5 with pulse 94, blood pressure 141/ 81, respirations 26 to 30, labored, short of breath, saturation 90% on nasal cannula at rest, 4 liters. After breathing treatments, respirations improved showing 92% on nasal cannula at rest, 3 liters. Admission weight 68.7 kg. GENERAL: On admission to the Medical/Surgical floor, the patient appeared to be in no acute distress. Resting comfortably. He looks well hydrated and well nourished. He was alert.. HEENT: Tympanic membranes not examined as he does have bilateral hearing aids. Oropharynx was pink, moist without any lesions. NECK: Non-tender, full range of motion. No jugular venous distention. CHEST: There was no notable rhonchi, rales, or wheezes. Breath sounds notable diminished throughout. CARDIOVASCULAR: Regular rate and rhythm without appreciable murmurs, gallops, or rubs. ABDOMEN: Obese but soft, non-tender with positive bowel sounds. EXTREMITIES: No clubbing, cyanosis or edema. NEUROLOGIC: He is alert and oriented times three. LABORATORY: White count 11,700 with a left shift. Coagulation studies showed a normal PT/PTT. Blood gas analysis showed pH 7.39 with P02 of 62, bicarb 23, PC02 of 39, saturation 92% on 3 liters nasal cannula. Chemistries showed normal electrolytes with BUN elevated at 36, creatinine 2.72. Lactic acid initially 2.4. Liver functions showing to be within normal limits. Troponin 0.03, BNP 113. MICROBIOLOGY: Blood cultures pending. Influenza A and B swabs negative. Sputum culture pending. RADIOLOGY: Chest x-ray 2-view per radiology interpretation showed interval appearance of a moderate sized infiltrate in the right lower lung zone. ASSESSMENT: 1. Exacerbation of chronic obstructive pulmonary disease with right lower lobe pneumonia demonstrated on radiographic studies with the patient having a leukocytosis and hypoxia on room air requiring initiation of aggressive bronchial hygiene and antibiotic therapy. 2. Sepsis secondary to #1 with lactic acid being elevated, leukocytosis, tachycardia and patient being tachypneic on admission. 3. Diabetes mellitus type 2 insulin requiring. 4. Hypertension. 5. Chronic kidney disease with a near baseline creatinine of 2.72 with patient history revealing normal baseline between 2.2 and 3.0. 6. History of coronary artery disease with placement of 2 stints in 2010. PLAN: The patient is going to be admitted to the medical/surgical floor for initiation of antibiotics and aggressive bronchial hygiene for treatment of underlying right lower lobe pneumonia community acquired. He was started on azithromycin and Rocephin. He will be on DVT prophylaxis per protocol. We will start him on Protonix for gastric protection as he was given steroids initially in the Emergency Department. At this point, the patient is without any significant wheezing. Will hold off on any IV corticosteroids until further evaluation. Will plan to repeat labs in the morning as well as chest x-ray. Anticipate length of stay to be at least 2 to 3 days. Until the patient is able to transition to oral medication and outpatient treatment management, will continue to monitor as needed. #[id number] [facility]
[2018-03-31] MEDS ORDERED: ACETAMINOPHEN 325 MG TAB PO PRN (11:59)
[2018-03-31] MEDS ORDERED: ALBUTEROL SULFATE 2.5 MG/3 ML VIAL NEB PRN (11:59)
[2018-03-31] MEDS ORDERED: GLUCAGON INJ 1 MG VIAL SUBCU PRN (11:59)
[2018-03-31] MEDS ORDERED: DEXTROSE 50% 25 GM/50 ML SYG IV PRN (11:59)
[2018-03-31] MEDS ORDERED: IPRATROPIUM/ALBUTEROL 3 ML VIAL INH SCH (12:00)
[2018-03-31] MEDS: IV SET AND CAP CHANGE INJ INJ SCH (12:13)
[2018-03-31] MEDS: KCL 20MEQ/0.45% NS 1,000 ML IVS PRN ×2 (12:38→18:37)
[2018-03-31] MEDS: INSULIN LISPRO 100 UNITS/ML PEN SUBCU SCH ×2 (17:12→21:01)
[2018-03-31] MEDS: IPRATROPIUM/ALBUTEROL 3 ML VIAL NEB SCH ×2 (17:35→20:40)
[2018-03-31] MEDS ORDERED: NIFEdipine XL 30 MG TAB PO ONE (19:48)
[2018-03-31] MEDS ORDERED: PANTOPRAZOLE SODIUM IV 40 MG VIAL ONE (19:48)
[2018-03-31] MEDS: FOLIC ACID 1 MG TAB PO SCH (20:46)
[2018-03-31] MEDS: METOPROLOL SUCCINATE XL 50 MG TAB PO SCH (20:46)
[2018-03-31] MEDS ORDERED: FLUTICASONE IN SCH (21:00)
[2018-03-31] MEDS ORDERED: NIFEDIPINE 60 MG PO SCH (21:00)
[2018-03-31] MEDS ORDERED: [UNRECOGNIZED DRUG - OTHER] IN SCH (21:00)
[2018-03-31] MEDS ORDERED: SODIUM CHLORIDE 0.9% (FLUSH) 10 ML SYG IV SCH (21:00)
[2018-03-31] MEDS ORDERED: SALMETEROL IN SCH (21:00)
[2018-03-31] MEDS ORDERED: NON-FORMULARY MEDICATION 1 EA MIS (Rosuvastatin Calcium [Crestor] 20 MG) PO SCH (21:00)
[2018-04-01] MEDS ORDERED: GLIMEPIRIDE 1 MG PO SCH (07:30)
[2018-04-01] MEDS: PANTOPRAZOLE SODIUM IV 40 MG VIAL IV SCH (07:32)
[2018-04-01] MEDS: INSULIN LISPRO 100 UNITS/ML PEN SUBCU SCH ×4 (07:59→20:55)
[2018-04-01] MEDS ORDERED: GLIMEPIRIDE 2 MG TAB ONE (08:00)
[2018-04-01] MEDS: KCL 20MEQ/0.45% NS 1,000 ML IVS PRN ×2 (08:19→20:31)
[2018-04-01] MEDS: IPRATROPIUM/ALBUTEROL 3 ML VIAL NEB SCH ×4 (08:22→20:12)
[2018-04-01] MEDS ORDERED: POLYETHYLENE GLYCOL 3350 17 GM PCKT ONE (08:52)
[2018-04-01] MEDS ORDERED: METOPROLOL SUCCINATE XL 50 MG TAB ONE (08:52)
[2018-04-01] MEDS ORDERED: ASPIRIN (CHEWABLE) 81 MG TAB ONE (08:52)
[2018-04-01] MEDS ORDERED: NIFEdipine XL 30 MG TAB PO ONE (08:52)
[2018-04-01] MEDS: [UNRECOGNIZED DRUG - OTHER] IN SCH ×2 (09:00→20:34)
[2018-04-01] MEDS: SALMETEROL IN SCH ×2 (09:00→20:34)
[2018-04-01] MEDS: ASPIRIN (CHEWABLE) 81 MG TAB PO SCH (09:38)
[2018-04-01] MEDS: NIFEdipine XL 30 MG TAB PO SCH ×2 (09:39→20:37)
[2018-04-01] MEDS: METOPROLOL SUCCINATE XL 50 MG TAB PO SCH ×2 (09:39→20:37)
[2018-04-01] MEDS: ENOXAPARIN SODIUM 30 MG/0.3 ML SYG SUBCU SCH (09:39)
[2018-04-01] MEDS: POLYETHYLENE GLYCOL 3350 17 GM PCKT PO SCH (09:39)
[2018-04-01] MEDS ORDERED: cefTRIAXone SODIUM 1 GM VIAL ONE ×2 (09:52→19:21)
[2018-04-01] MEDS ORDERED: SODIUM CHL 0.9% 50ML MIN-BAG+ 50 ML IVPB ONE ×2 (09:52→19:20)
--- NOTE | 2018-04-01 09:58 | RAD ---
EXAM DESCRIPTION: Chest,2 Views CLINICAL HISTORY: Pneumonia COMPARISON: March 31, 2018 FINDINGS: Two-view chest x-ray shows cardiomediastinal silhouette and pulmonary vasculature to be within normal limits. The lungs are normally aerated. Increased interstitial alveolar markings are again seen in the bilateral lower lobes slightly asymmetric on the right, but improved compared to previous exam and mainly involving the right lower lobe. Calcified pulmonary nodule in the left upper lobe is stable. There is blunting the posterior costophrenic angles bilaterally. Moderate disc degenerative changes of the spine are seen. IMPRESSION: Chronic appearing increased interstitial alveolar changes in the lower lobes bilaterally is seen. The asymmetric increased infiltrate in the right lower lobe seen on previous exam is slightly improved suggesting improvement of atelectasis or pneumonia/pneumonitis superimposed on chronic changes. Electronically signed by: Rob Nick MD 04/01/2018 9:56 AM [employer] OPERATOR
[2018-04-01] MEDS: cefTRIAXone SODIUM 1 GM in SODIUM CHL 0.9% 50ML MIN-BAG+ 50 ML IVPB SCH ×2 (10:07→22:25)
[2018-04-01] MEDS: AZITHROMYCIN 250 MG TAB PO SCH (10:10)
[2018-04-01] MEDS: SODIUM CHLORIDE 0.9% (FLUSH) 10 ML SYG IV PRN ×2 (11:56→20:38)
[2018-04-01] MEDS: methylPREDNISolone SODIUM SUC 40 MG/ML VIAL IV SCH ×2 (11:56→20:38)
--- NOTE | 2018-04-01 20:10 | PN ---
DATE: 04/01/18 SUPERVISING PHYSICIAN: Keith Roque M.D. SUBJECTIVE: The patient feels like he is able to pull a larger volume of air and is not quite as short of breath today. He has had no chest pains, nausea or vomiting through the night. OBJECTIVE: VITAL SIGNS: Temperature 97.4, pulse 89, blood pressure 120/63, respirations 18, satting 91% on room air. I's and O's show a positive balance with 1207 with 2457 in, 1250 out. Weight is 69.5 kg. GENERAL: The patient has just returned from Radiology and is showing to be stable in no acute distress, and alert. CHEST: Lung sounds remain diminished but slightly improved from previous admission. He has a slight inspiratory wheeze but no rhonchi or rales. HEART: Regular rate and rhythm. ABDOMEN: Soft, non-tender. Positive bowel sounds. EXTREMITIES: Without any clubbing, cyanosis or edema. NEUROLOGIC : He is alert and oriented times three. LABORATORY: White count now is down to 8,500, hemoglobin 13.2, hematocrit 39.8 , platelet count 242,000. Differential continues to show a left shift. Chemistries show normal electrolytes today with BUN 37, creatinine is down to 2.17. Blood sugars have ranged between 159 to 243. MICROBIOLOGY: Sputum culture is pending. RADIOLOGY: Repeat chest x-ray, 2 view chest this morning per radiology interpretation shows chronic-appearing increased interstitial alveolar changes in the lower lobes bilaterally are seen with asymmetric increased infiltrate in the right lower lobe on the previous exam is slightly improved suggesting improvement in atelectasis or pneumonia/pneumonitis superimposed on chronic changes. ASSESSMENT: 1. Acute exacerbation of chronic obstructive pulmonary disease with right lower lobe pneumonia, community acquired, as demonstrated on radiographic studies and the patient having a leukocytosis and being hypoxic on room air requiring initiation of ongoing aggressive bronchial hygiene and antibiotic therapy with sputum cultures pending. 2. Sepsis secondary to #1 with lactic acid initially elevated on admission responding to fluids showing no leukocytosis that is now resolved and the patient having been tachycardic which has improved, and the patient being significant tachypneic on admission, improved as well. Continue to monitor. 3. Diabetes mellitus type 2 insulin requiring showing elevated blood sugar secondary to corticosteroids. 4. Hypertension, stable. 5. Chronic kidney disease now back to baseline with patient having a history of baseline creatinine between 2.2 and 3.0, having exacerbation by dehydration and improved with fluids. 6. History of coronary artery disease with placement of stents in 2010. PLAN: Will continue with antibiotic therapy. Will await sputum cultures. He continues on aggressive bronchial hygiene. He is on azithromycin and Rocephin. Due to his wheezing today, I have started him on some Solu-Medrol very low dose, 40 mg every 12 hours for 3 doses to reevaluate in the morning for possibly continuing with p.o. medication. He is on Protonix for gastric protection as well as he remains on DVT prophylaxis. Anticipate hopefully being able to discharge either later tomorrow or Sunday. Plan to repeat labs in the morning as well as chest x-ray. Until he can transition to p.o. medication and outpatient management, will continue to monitor and treat as needed. #[id number] [facility]
[2018-04-01] MEDS: FOLIC ACID 1 MG TAB PO SCH (20:37)
[2018-04-01] MEDS: ATORVASTATIN 20 MG TAB PO SCH (20:37)
[2018-04-02] MEDS: PANTOPRAZOLE SODIUM IV 40 MG VIAL IV SCH (06:09)
[2018-04-02] MEDS: SODIUM CHLORIDE 0.9% (FLUSH) 10 ML SYG IV PRN (06:09)
[2018-04-02] MEDS: INSULIN LISPRO 100 UNITS/ML PEN SUBCU SCH ×4 (07:25→20:56)
[2018-04-02] MEDS ORDERED: SODIUM CHL 0.9% 50ML MIN-BAG+ 50 ML IVPB ONE ×2 (07:31→19:29)
[2018-04-02] MEDS ORDERED: cefTRIAXone SODIUM 1 GM VIAL ONE ×2 (07:32→19:30)
[2018-04-02] MEDS: GLIMEPIRIDE 2 MG TAB PO SCH (07:43)
[2018-04-02] MEDS ORDERED: predniSONE 20 MG TAB PO SCH (09:00)
[2018-04-02] MEDS: METOPROLOL SUCCINATE XL 50 MG TAB PO SCH ×2 (09:05→20:54)
[2018-04-02] MEDS: ASPIRIN (CHEWABLE) 81 MG TAB PO SCH (09:05)
[2018-04-02] MEDS: POLYETHYLENE GLYCOL 3350 17 GM PCKT PO SCH (09:05)
[2018-04-02] MEDS: NIFEdipine XL 30 MG TAB PO SCH ×2 (09:05→20:54)
[2018-04-02] MEDS: ENOXAPARIN SODIUM 30 MG/0.3 ML SYG SUBCU SCH (09:05)
[2018-04-02] MEDS: AZITHROMYCIN 250 MG TAB PO SCH (09:05)
[2018-04-02] MEDS: cefTRIAXone SODIUM 1 GM in SODIUM CHL 0.9% 50ML MIN-BAG+ 50 ML IVPB SCH ×2 (09:06→21:56)
[2018-04-02] MEDS ORDERED: methylPREDNISolone SODIUM SUC 125 MG/2 ML VIAL IV ONE (09:19)
[2018-04-02] MEDS: SALMETEROL IN SCH ×2 (09:19→20:47)
[2018-04-02] MEDS: [UNRECOGNIZED DRUG - OTHER] IN SCH ×2 (09:19→20:47)
[2018-04-02] MEDS: IPRATROPIUM/ALBUTEROL 3 ML VIAL NEB SCH ×4 (09:19→20:47)
[2018-04-02] MEDS ORDERED: methylPREDNISolone SODIUM SUC 40 MG/ML VIAL ONE (09:24)
[2018-04-02] MEDS: methylPREDNISolone SODIUM SUC 40 MG/ML VIAL IV SCH (09:25)
--- NOTE | 2018-04-02 09:43 | PN ---
SUPERVISING PHYSICIAN: Keith Roque MD DATE: 04/02/18 SUBJECTIVE: The patient is sitting up in his chair in his room. He is quite short of breath. He feels like he is having a difficult time getting his breath and he is presently getting a breathing treatment. It was reported by the nurse that his condition slightly digressed overnight. Otherwise, he has no complaints of chest pain, nausea, vomiting, diarrhea or constipation. OBJECTIVE: VITAL SIGNS: Temperature 97.6. Heart rate 99. Blood pressure 136/65. Respiratory rate 24. O2 saturation 94% on 4 liters nasal cannula. RESPIRATORY: Scattered rhonchi and expiratory wheezes throughout. He is quite tachypneic. He is getting a breathing treatment at this time. CARDIAC: Regular rate and rhythm. GASTROINTESTINAL: Abdomen is soft, nondistended, nontender. Bowel sounds are positive. EXTREMITIES: No cyanosis, clubbing or edema. NEUROLOGIC: Awake, alert and oriented times three. LABORATORY: Blood sugars have run between 166 and 254. Sputum culture is pending. All other labs and films have been reviewed via the EMR. ASSESSMENT: 1. Acute exacerbation of chronic obstructive pulmonary disease with right lower lobe pneumonia, community acquired. 2. Sepsis secondary to #1 with lactic acid initially elevated on admission. He continues to be quite tachypneic. 3. Diabetes mellitus, type 2, presently on. Blood sugars are elevated most likely due to corticosteroids. 4. Hypertension, stable. 5. Chronic kidney disease now back to baseline. His baseline creatinine is about 2.2 to 3.0. 6. History of coronary artery disease with placement of stents in 2010. PLAN: We will continue present supportive care. He received two doses of IV Solu-Medrol yesterday, but that was stopped last night. This morning, he is quite tachypneic as well as has expiratory wheezing, so I will give him one dose of 80 mg of Solu-Medrol and I will do some routine IV Solu-Medrol overnight. Hopefully tomorrow I can transition him to p.o. prednisone. We will continue with his Rocephin and azithromycin. It may be helpful to have home health on discharge. He does have O2 at home, but he does not have home health at this time. I stopped his IV fluids, added some guaifenesin and I will repeat his chest x-ray and lab in the morning. Otherwise, we will continue to monitor the patient closely and follow as needed. Dr. Roque is the collaborating physician and available for consultation. #[id number] [facility]
[2018-04-02] MEDS: guaiFENesin ER TAB 600 MG TAB PO SCH ×2 (10:21→20:53)
[2018-04-02] MEDS: methylPREDNISolone SODIUM SUC 125 MG/2 ML VIAL IV SCH ×2 (14:54→21:52)
[2018-04-02] MEDS: FOLIC ACID 1 MG TAB PO SCH (20:52)
[2018-04-02] MEDS: ATORVASTATIN 20 MG TAB PO SCH (20:53)
[2018-04-03] MEDS: methylPREDNISolone SODIUM SUC 125 MG/2 ML VIAL IV SCH (05:33)
[2018-04-03] MEDS: PANTOPRAZOLE SODIUM IV 40 MG VIAL IV SCH (06:04)
--- NOTE | 2018-04-03 07:13 | RAD ---
EXAM: Two view chest. INDICATION: Pneumonia. COMPARISON: Chest x-ray: 04/01/2018. FINDINGS: Again noted are right lower lobe interstitial opacities. The heart is normal in size. A small right pleural effusion is present. There is no pneumothorax. The bones are unchanged. IMPRESSION: Right lower lobe pneumonia Electronically signed by: Jeremias Serrano MD 04/03/2018 7:12 AM [employer]CR[employer]PUT[employer] TECHNICIAN Workstation: [id number]
[2018-04-03] MEDS ORDERED: SODIUM CHL 0.9% 50ML MIN-BAG+ 50 ML IVPB ONE ×2 (07:22→19:56)
[2018-04-03] MEDS ORDERED: cefTRIAXone SODIUM 1 GM VIAL ONE ×2 (07:23→19:57)
[2018-04-03] MEDS: INSULIN LISPRO 100 UNITS/ML PEN SUBCU SCH ×4 (07:32→21:31)
[2018-04-03] MEDS: GLIMEPIRIDE 2 MG TAB PO SCH (07:41)
[2018-04-03] MEDS: [UNRECOGNIZED DRUG - OTHER] IN SCH ×2 (08:28→20:38)
[2018-04-03] MEDS: SALMETEROL IN SCH ×2 (08:28→20:38)
[2018-04-03] MEDS: IPRATROPIUM/ALBUTEROL 3 ML VIAL NEB SCH ×4 (08:28→20:37)
[2018-04-03] MEDS: guaiFENesin ER TAB 600 MG TAB PO SCH ×2 (08:32→20:20)
[2018-04-03] MEDS: AZITHROMYCIN 250 MG TAB PO SCH (08:32)
[2018-04-03] MEDS: METOPROLOL SUCCINATE XL 50 MG TAB PO SCH ×2 (08:32→20:20)
[2018-04-03] MEDS: ASPIRIN (CHEWABLE) 81 MG TAB PO SCH (08:32)
[2018-04-03] MEDS: NIFEdipine XL 30 MG TAB PO SCH ×2 (08:32→20:19)
[2018-04-03] MEDS: POLYETHYLENE GLYCOL 3350 17 GM PCKT PO SCH (08:33)
[2018-04-03] MEDS: ENOXAPARIN SODIUM 30 MG/0.3 ML SYG SUBCU SCH (08:33)
[2018-04-03] MEDS: cefTRIAXone SODIUM 1 GM in SODIUM CHL 0.9% 50ML MIN-BAG+ 50 ML IVPB SCH ×2 (10:21→21:48)
--- NOTE | 2018-04-03 11:57 | PN ---
SUPERVISING PHYSICIAN: Keith Roque MD DATE: 04/03/18 SUBJECTIVE: The patient is sitting up in his bed. He feels much better than yesterday although he still gets short of breath at times with any exertion. He feels like the medications are working and it has really helped for him to get up moving around. He denies chest pain, nausea, vomiting, diarrhea or constipation. He also agreed to doing one to two weeks of home health at discharge, which would be [facility], but he would eventually like to do pulmonary rehab so he can [facility] his [facility]. OBJECTIVE: VITAL SIGNS: Afebrile. Heart rate as high as 107. It is now 85. Blood pressure in the last 24 hours has been as high 178/64. It is 155/70 now. Respiratory rate has been 24. O2 saturation 95% on 4 liters nasal cannula. RESPIRATORY: Somewhat diminished breath sounds at the bases, but essentially clear to auscultation except for the left upper lobe has a few expiratory wheezes, but very mild. He is tachypneic at times. On exam, he was 22 to 24 breaths per minute. CARDIAC: Regular rate and rhythm. Sometimes, he does become mildly tachycardic. GASTROINTESTINAL: Abdomen is soft, nondistended, nontender. Bowel sounds are positive. NEUROLOGIC: Awake, alert and oriented times three. LABORATORY: WBCs elevated at 12.3 with stable hemoglobin and hematocrit of 13.9 and 41.9. He does have a left shift on differential. Blood sugars have run between 195 and 308. Electrolytes are basically within normal limits. Creatinine 1.83. Baseline creatinine is about 1.8 to 2. Preliminary sputum culture shows no growth. Still awaiting final culture. Chest x-ray shows right lower lobe pneumonia, no changes. All other labs and films have been reviewed via the EMR. ASSESSMENT: 1. Acute exacerbation of chronic obstructive pulmonary disease with right lower lobe pneumonia, community acquired. 2. Sepsis secondary to #1 with lactic acid initially elevated on admission. He continues to be quite tachypneic. 3. Diabetes mellitus, type 2, presently on. Blood sugars are elevated most likely due to corticosteroids. 4. Hypertension, stable. 5. Chronic kidney disease now back to baseline. His baseline creatinine is about 1.8 to 2.0. 6. History of coronary artery disease with placement of stents in 2010. PLAN: We will continue present supportive care. I have tapered down his IV Solu-Medrol and it will discontinue early tomorrow and we will transition to p.o. prednisone. He is much improved since yesterday although his heart rate continues to be somewhat elevated as well as his blood pressure and his respiratory rate. I have ordered ambulation 4 times a day. We need to watch his heart rate and blood pressure overnight. His metoprolol may need to be increased. He did agree to [facility] for a short amount of time after discharge. I think that would be beneficial to monitor his progress. At some point after his home health is complete, he would like to go back to pulmonary rehab. I have also ordered lab and chest x-ray in the morning. Hopefully he can be discharged tomorrow with his antibiotics as well as steroid taper. We will continue to monitor the patient closely and follow as needed. #[id number] MTDD
[2018-04-03] MEDS: IV SET AND CAP CHANGE INJ INJ SCH (12:48)
[2018-04-03] MEDS: SODIUM CHLORIDE 0.9% (FLUSH) 10 ML SYG IV PRN ×2 (14:05→21:49)
[2018-04-03] MEDS: methylPREDNISolone SODIUM SUC 40 MG/ML VIAL IV SCH ×2 (14:05→21:49)
[2018-04-03] MEDS: FOLIC ACID 1 MG TAB PO SCH (20:20)
[2018-04-03] MEDS: ATORVASTATIN 20 MG TAB PO SCH (20:20)
[2018-04-04] MEDS: methylPREDNISolone SODIUM SUC 40 MG/ML VIAL IV SCH (06:04)
[2018-04-04] MEDS: PANTOPRAZOLE SODIUM IV 40 MG VIAL IV SCH (06:09)
--- NOTE | 2018-04-04 07:13 | RAD ---
EXAM: Two view chest. INDICATION: Pneumonia. COMPARISON: Chest x-ray: 04/03/2018. FINDINGS: There are grossly stable right lower lobe interstitial opacities. The left lung is clear. The heart is normal in size. There is no large pleural effusion. There is no pneumothorax. The bones are unchanged. IMPRESSION: Grossly stable right lower lobe interstitial opacities, representing pneumonia Electronically signed by: Jeremias Serrano MD 04/04/2018 7:12 AM [facility] Workstation: [id number]
[2018-04-04] MEDS: [UNRECOGNIZED DRUG - OTHER] IN SCH (07:42)
[2018-04-04] MEDS: IPRATROPIUM/ALBUTEROL 3 ML VIAL NEB SCH ×2 (07:42→11:05)
[2018-04-04] MEDS: SALMETEROL IN SCH (07:42)
[2018-04-04] MEDS: INSULIN LISPRO 100 UNITS/ML PEN SUBCU SCH ×2 (07:52→12:00)
[2018-04-04] MEDS: GLIMEPIRIDE 2 MG TAB PO SCH (08:02)
[2018-04-04] MEDS ORDERED: predniSONE 20 MG TAB PO SCH (09:00)
[2018-04-04] MEDS: POLYETHYLENE GLYCOL 3350 17 GM PCKT PO SCH (10:02)
[2018-04-04] MEDS: ASPIRIN (CHEWABLE) 81 MG TAB PO SCH (10:03)
[2018-04-04] MEDS: METOPROLOL SUCCINATE XL 50 MG TAB PO SCH (10:03)
[2018-04-04] MEDS: NIFEdipine XL 30 MG TAB PO SCH (10:03)
[2018-04-04] MEDS: ENOXAPARIN SODIUM 30 MG/0.3 ML SYG SUBCU SCH (10:04)
[2018-04-04] MEDS ORDERED: cefTRIAXone SODIUM 1 GM VIAL ONE (10:15)
[2018-04-04] MEDS ORDERED: SODIUM CHL 0.9% 50ML MIN-BAG+ 50 ML IVPB ONE (10:15)
[2018-04-04] MEDS: guaiFENesin ER TAB 600 MG TAB PO SCH (10:17)
[2018-04-04] MEDS: AZITHROMYCIN 250 MG TAB PO SCH (10:17)
[2018-04-04] MEDS: cefTRIAXone SODIUM 1 GM in SODIUM CHL 0.9% 50ML MIN-BAG+ 50 ML IVPB SCH (10:18)
[2018-04-04 11:07] VITALS: O2SAT 95
[2018-04-04 13:27] VITALS: BP 172/63; TEMP 97.6
[2018-04-04] MEDS ORDERED: ALPRAZolam 0.25 MG TAB ONE (16:12)
--- NOTE | 2018-04-04 17:33 | DS ---
SUPERVISING PHYSICIAN: Keith Roque M.D. DISCHARGE DIAGNOSIS: 1. Exacerbation of chronic obstructive pulmonary disease with right lower lobe pneumonia demonstrated on radiographic studies with the patient having a leukocytosis and hypoxia on room air requiring initiation of aggressive bronchial hygiene and antibiotic therapy. 2. Sepsis secondary to #1 with lactic acid being elevated, leukocytosis, tachycardia and patient being tachypneic on admission. 3. Diabetes mellitus type 2 insulin requiring. 4. Hypertension. 5. Chronic kidney disease with a near baseline creatinine of 2.72 with patient history revealing normal baseline between 2.2 and 3.0. 6. History of coronary artery disease with placement of 2 stints in 2010. HISTORY OF PRESENT ILLNESS: This is an 82 year-old male patient who is an insulin-dependent diabetic and has a longstanding history of chronic obstructive pulmonary disease. He presented to the Emergency Room with increasing shortness of breath over the last week or so. He also had some flu- like symptoms but he never got tested. He does use oxygen at home but the dyspnea worsened. He was only able to walk about 15 feet without getting significantly dyspneic and needed to rest. He also had a productive cough purulent in nature and has not seen anyone for treatment. He denied any chest pain. He was on a heart monitor by his air and water filler, but he did not complete that and actually sent his monitor back especially due to his continued cough and upper respiratory symptoms. His initial lab studies in the Emergency Room showed a leukocytosis of 11,700 with a left shift on differential. Blood gas showed mild hypoxia with pO2 of 62, saturation was 92% on 2 liters. He had a pH of 7.36, bicarb was 23 and pCO2 of 39. Chemistries showed an elevated BUN and creatinine, and his creatinine was 2.72. The patient has a history of chronic renal failure with baseline creatinine known to be about 2.5. He had renal carcinoma in the 60s. Lactic acid was elevated at 2.4. Liver functions were within normal limits. BNP was slightly elevated at 113, troponin 0.03. Chest x-ray noted the right lower lobe infiltrate and he was admitted to the hospital for right lower lobe pneumonia with leukocytosis, elevated lactic acid as well as exacerbation of his COPD. There were underlying concerns for sepsis. Blood cultures were drawn in the E. R. and Rocephin and azithromycin were started. He was admitted to the hospital in stable condition. HOSPITAL COURSE: Over the next 2 days he was given some IV Solu-Medrol. It was titrated down fairly quickly due to his elevated blood sugars. He improved over the next day but then on the third day he had significant increase in rhonchi and expiratory wheezing in all lung sung. He was tachypneic as well as his oxygen saturation went down to 89%. They remained in the low 90s on 2 to 3 liters of oxygen. His Solu-Medrol was increased and he was given a tapered dose of IV Solu-Medrol over the next 2 days. He was given aggressive pulmonary hygiene from the pneumonia guidelines. Today, he will be discharged home in stable condition with close followup with his primary care physician, Dr. Keith Roque. LABORATORY: WBC of 11.7 and today it is 13.2, but he has been on fairly high dose steroids. Hemoglobin and hematocrit are stable at 14.9 and 45.6. Platelets this morning are slightly high at 419. He continues to have a left shift on his differential. Blood sugars have been running between 195 and 305 over the last 24 hours but his electrolytes are within normal limits. Creatinine is down to baseline at 1.99. Final sputum culture shows moderate mixed normal respiratory kristina. RADIOLOGY: Chest x-ray this morning shows a grossly stable right lower lobe interstitial opacities representing pneumonia. DISCHARGE PLAN: The patient will be discharged home in stable condition. He has agreed to have [facility] for the next several weeks until he gets strong enough. He would like to go to [facility] after discharge from home [facility] as prior to his illness he was going to [facility] [place] several times weekly. He is to resume his diabetic diet. He is to increase his activity as tolerated. We will have [facility] Physical Therapy evaluate him. He has a followup appointment with Dr. Roque on 04/11/18 at 2:45. In addition to his routine medications I have also prescribed Align, Cefdinir and Prednisone taper. He is to return to the hospital or call Dr. Roque for any further problems or complications. DISCHARGE MEDICATIONS: 1. Crestor. 2. Procardia XL. 3. Metoprolol succinate. 4. Folic acid. 5. Baby aspirin. 6. Pantoprazole. 7. Januvia. 8. MiraLAX. 9. Advair. 10. Glimepiride. 11. Align. 12. Cefdinir. 13. Guaifenesin. 14. Prednisone taper. [facility][id number] [facility]
== END 2018-04-04 16:33 | disposition home health service (06) | DRG 871 ==
LOC: ER 09:58 → MS 11:23
PROVIDERS: ADMIT Nurse Practitioner Family; ATTEND Nurse Practitioner Acute Care
DX: A41.9 Sepsis, unspecified organism (principal); J18.9 Pneumonia, unspecified organism; J44.1 Chronic obstructive pulmonary disease with (acute) exacerbation; J44.0 Chronic obstructive pulmonary disease with (acute) lower respiratory infection; E11.22 Type 2 diabetes mellitus with diabetic chronic kidney disease; N18.9 Chronic kidney disease, unspecified; Z79.4 Long term (current) use of insulin; I11.0 Hypertensive heart disease with heart failure; Z85.51 Personal history of malignant neoplasm of bladder; Z85.528 Personal history of other malignant neoplasm of kidney; K21.9 Gastro-esophageal reflux disease without esophagitis; I25.10 Atherosclerotic heart disease of native coronary artery without angina pectoris; Z90.5 Acquired absence of kidney; Z88.8 Allergy status to other drugs, medicaments and biological substances; Z87.891 Personal history of nicotine dependence; Z95.5 Presence of coronary angioplasty implant and graft